=== PATIENT | male | born 1950 | race Caucasian/White ===

== ENCOUNTER 2018-06-26 02:26 | Inpatient (IN) ==
--- NOTE | 2018-06-26 02:36 | Emergency Department Note ---
Back Pain HPI - General Chief Complaint: Back Pain/Injury Stated Complaint: back pain Time Seen by Provider: 06/26/18 02:33 Source: patient Limitations: no limitations - History of Present Illness HPI Narrative: he has a history of chronic lumbosacral disc disease, was seen today and had a CT showed broadband disc disease at L2-L3 mild broadband disc protrusion at L3- L4 fusion at L4-L5. He was given a pain injection Dilaudid and Zofran and then he did follow-up with Dr. Cartagena was arranged for him to have a epidural steroid injection tomorrow in the radiology department. He is to return again for pain relief.He is currently on Flexeril Neurontin and [place] tens and mor phine 15 MG. They have previously discussed with Dr. Cartagena a referral to the pain clinic - Related Data Home Medications Medication Instructions Recorded Confirmed Aspirin [Anna Chewable Aspirin] 162 mg PO DAILY 08/03/15 03/21/17 Cyclobenzaprine [Flexeril] 10 mg PO HSP PRN 08/03/15 03/21/17 Gabapentin [Neurontin] 300 mg PO TID 08/03/15 03/21/17 HYDROcodone/APAP 10/325MG [[place] 1 tab PO Q4H PRN 08/03/15 03/21/17 10/325Mg] Lovastatin 40 mg PO HS 08/03/15 03/21/17 Metoprolol Tartrate 12.5 mg PO BID 08/03/15 03/21/17 amLODIPine [Norvasc] 10 mg PO DAILY 08/03/15 03/21/17 Allergies Allergy/AdvReac Type Severity Reaction Status Date / Time No Known Drug Allergies Allergy Verified 03/21/17 10:54 Review of Systems All systems ED: reviewed and negative except as stated. Musculoskeletal: Reports: back pain. Denies: joint swelling, joint pain, muscle cramps Past Medical History - Past Medical History PMF Narrative: All Active Problems (Last Reviewed 03/21/17 @ 13:19 by Everardo Campbell PA-C) Coronary artery disease (Acute) Abscess (Acute) Lumbosacral disc disease (Acute) Laceration of right hand (Acute) Medical history: Reports: other (mitral valve diseasemitral regurgitation, pain, headache, hypertension, hypercholesterolemia) - Social History smoking status: Former smoker Alcohol use: Reports: Rarely Drug use: Reports: none Physical Exam Limitations: no limitations General appearance: alert Head: atraumatic Eye: Present: normal appearance, PERRL ENT: normal exam, normal oropharynx, mucous membranes moist Neck: Present: normal inspection, full ROM. Absent: trachea midline Chest: Present: normal inspection, symmetric chest wall rise. Absent: tenderness Respiratory: Present: normal lung sounds bilaterally. Absent: respiratory distress, rales/crackles, wheezes Course Vital Signs Temperature 98.2 F 06/26/18 02:27 Respiratory Rate 18 06/26/18 02:27 Blood Pressure 131/79 06/26/18 02:27 Pulse Oximetry (%) 94 06/26/18 02:27 Temperature 98.2 F 06/26/18 02:27 Pulse Rate 79 06/26/18 08:53 Respiratory Rate 18 06/26/18 02:27 Blood Pressure 127/80 06/26/18 08:01 Pulse Oximetry (%) 96 06/26/18 08:53 Back Pain/Injury - MDM Narrative Medical decision making narrative: Patient is scheduled for dural steroid injection tomorrow is given IV Dilaudid and Zofran. patient complaining of severe pain . was given 1 mg of dilaudid and still complaining of a 10/10 pain. A second injection Dilaudid given 1 mg patient was noted to start the satting was put on O2 and observed. Complaining of severe pain and That some of the pain is starting to wrap around to his front. Ultrasound showed no evidence of aneurysm or gallbladder involvement. chest xray performed as his sats would drop to 89% at times. UA and chest x-ray also performed. The urine chest x-ray are normal BBC is 13,000 Dr. Patel has been contacted and is attempted to try to work him in earlier for the intrathecal injection patient transferred to the care of Dr. Jack at [address] Patel will get back to us of when he can do the intrathecal injections - Lab Data Result diagrams: 06/26/18 08:25 Lab Results 06/26/18 06/26/18 Range/Units 08:24 08:25 WBC 13.0 H (4.5-11.0) K/mcL RBC 4.17 L (4.50-5.90) M/mcL Hgb 12.9 L (13.5-16.5) g/dL Hct 38.6 L (41.0-55.0) % POC Hct 39.0 L (41.0-55.0) % MCV 92.5 (80.0-100.0) fL MCH 30.9 (26.0-34.0) pg MCHC 33.5 (31.0-36.0) g/dL RDW 12.9 (11.5-14.5) % Plt Count 242 (140-440) K/mcL MPV 7.2 L (7.4-10.4) fL Gran % 82.1 H (38.0-78.0) % Lymph % (Auto) 6.9 L (15.5-49.0) % Mckenzie % (Auto) 10.9 (1.0-12.0) % Eos % (Auto) 0.1 (0.0-7.0) % Baso % (Auto) 0 (0.0-2.0) % Gran # 10.7 H (1.8-8.0) K/mcL Lymph # (Auto) 0.9 L (1.5-4.8) K/mcL Mckenzie # (Auto) 1.4 H (0.1-0.9) K/mcL Eos # (Auto) 0 (0.0-0.7) K/mcL Baso # (Auto) 0 (0.0-0.3) K/mcL POC Sodium 134 (133-145) mmol/L POC Potassium 4.6 (3.3-5.1) mmol/L POC Chloride 99 (96-108) mmol/L POC Total CO2 24 (22-30) mmol/L POC BUN 18 (8-23) mg/dl POC Creatinine 0.8 (0.7-1.2) mg/dl POC Glucose 150 H (70-105) mg/dL POC WB Ioniz Calcium 1.16 (1.16-1.32) mmol/L Disposition Pt seen by EXPORT SALES MANAGER/PA only: No Clinical Impression: Lumbosacral disc disease Disposition: Home, Self-Care Condition: Fair Instructions: Lumbar Radiculopathy (ED), Chronic Back Pain (ED) Additional Instructions: Keep appointment for epidural steroid injection tomorrow 10 with pain meds of morphine and hydrocodone tens Referrals: Alber Cartagena MD [Primary Care Provider] - Time of Disposition: 09:04
[2018-06-26] MEDS ORDERED: ONDANSETRON 4 MG/2 ML VIAL IV ONE (02:37)
[2018-06-26] MEDS: HYDROmorphone 2 MG/ML VIAL IV PRN ×4 (02:46→18:15)
[2018-06-26] MEDS ORDERED: CYCLOBENZAPRINE 10 MG TABLET PO ONE (06:36)
[2018-06-26] MEDS ORDERED: KETOROLAC 30 MG/ML VIAL IV ONE (08:15)
[2018-06-26] MEDS ORDERED: KETOROLAC 15 MG/ML VIAL IV ONE (08:18)
--- NOTE | 2018-06-26 08:46 | XRay Report ---
CLINICAL INFORMATION: Hypoxia COMPARISON: 08/03/2015 FINDINGS: Heart is upper limits normal in size. Mediastinum and pulmonary vessels are normal. Lungs are clear. No effusions. IMPRESSION: Negative Interpreted and Authenticated by: Damion Patel 06/26/18
--- NOTE | 2018-06-26 08:54 | Ultrasound Report ---
CLINICAL INFORMATION: ruq pain COMPARISON: None. FINDINGS: Liver is diffusely hyperechoic and mildly enlarged with vertical measured 19 cm. The gallbladder and bile ducts are normal CD6 millimeters. Pancreas not visualized. No free fluid IMPRESSION: Moderate hepatomegaly with elevated echotexture compatible with fatty change or other diffuse hepatocellular process Interpreted and Authenticated by: Damion Patel 06/26/18
[2018-06-26 08:58] LABS: Basophils # (Auto) 0 K/mcL (0.0-0.3); Basophils % (Auto) 0 % (0.0-2.0); Eosinophils # (Auto) 0 K/mcL (0.0-0.7); Eosinophils % (Auto) 0.1 % (0.0-7.0); Granulocytes % (Auto) 82.1 % (38.0-78.0); Lymphocytes # (Auto) 0.9 K/mcL (1.5-4.8); Lymphocytes % (Auto) 6.9 % (15.5-49.0); Mean Cell Volume 92.5 fL (80.0-100.0); Mean Corpuscular HGB Conc 33.5 g/dL (31.0-36.0); Monocytes # (Auto) 1.4 K/mcL (0.1-0.9); Monocytes % (Auto) 10.9 % (1.0-12.0); Platelet Count 242 K/mcL (140-440); RBC 4.17 M/mcL (4.50-5.90); Red Cell Distribution Width 12.9 % (11.5-14.5)
[2018-06-26] MEDS ORDERED: MIDAZOLAM 2 MG/2 ML VIAL IV SCH (10:30)
[2018-06-26] MEDS ORDERED: BUPIVACAINE PF 0.25% 10 ML VIAL IJ SCH (10:30)
[2018-06-26] MEDS ORDERED: TRIAMCINOLONE ACETONIDE 10 MG/ML INTRAARTIC SCH (10:30)
[2018-06-26] MEDS ORDERED: fentaNYL 100 MCG/2 ML VIAL IV SCH (10:30)
[2018-06-26] MEDS ORDERED: IOHEXOL 180 10 ML VIAL IJ SCH (10:30)
[2018-06-26] MEDS ORDERED: fentaNYL 100 MCG/2 ML VIAL IV ONE (11:00)
[2018-06-26] MEDS: MIDAZOLAM 2 MG/2 ML VIAL ONE ×2 (11:25→11:40)
--- NOTE | 2018-06-26 12:13 | Emergency Department Note ---
Back Pain HPI - General Chief Complaint: Back Pain/Injury Stated Complaint: back pain Time Seen by Provider: 06/26/18 02:33 Source: patient Mode of arrival: ambulatory Limitations: no limitations - History of Present Illness HPI Narrative: Patient was checked out to me by Dr. Fleming at shift change. I reviewed his note as well as imaging studies and lab Patient notes severe lumbar back pain unmitigated by current narcotics muscle relaxer neuropathic pain medicine. No recent trauma. Patient slowly got worse over the last week or so for unclear factors. He denies bowel or bladder issues. Does note radiculopathy bilaterally down to mid thigh. He is able to walk but this is severely limited by pain Further history obtained from his and son, they state that he is never had pain like this before. They noted his pain the last couple days has been so severe that he cannot even walk - Related Data Home Medications Medication Instructions Recorded Confirmed Cyclobenzaprine [Flexeril] 10 mg PO HSP PRN 08/03/15 06/26/18 HYDROcodone/APAP 10/325MG [[place] 1 tab PO Q3H PRN 08/03/15 06/26/18 10/325Mg] Atorvastatin [Lipitor] 20 mg PO DAILY 06/26/18 06/26/18 DULoxetine HCL [Cymbalta] 30 mg PO DAILY 06/26/18 06/26/18 DULoxetine HCL [Cymbalta] 60 mg PO DAILY 06/26/18 06/26/18 Gabapentin 600 mg PO BID 06/26/18 06/26/18 Lisinopril [Zestril] 5 mg PO DAILY 06/26/18 06/26/18 Metoprolol Tartrate [Lopressor] 25 mg PO BID 06/26/18 06/26/18 morphine SULFATE [Morphine Sulfate 15 mg PO Q8-12HP PRN 06/26/18 06/26/18 ER] Allergies Allergy/AdvReac Type Severity Reaction Status Date / Time No Known Drug Allergies Allergy Verified 03/21/17 10:54 Review of Systems Musculoskeletal: Reports: back pain. Denies: joint swelling, joint pain, muscle cramps Past Medical History - Past Medical History Medical history: Reports: other (mitral valve diseasemitral regurgitation, pain, headache, hypertension, hypercholesterolemia) - Social History smoking status: Former smoker Alcohol use: Reports: Rarely Drug use: Reports: none Physical Exam I reexamined the patient and note that the tenderness is worst at the the L3-L5 area bilaterally. No SI joint tenderness is noted. No paraspinal or flank tenderness is noted. Straight leg raise is negative-that is he does not have radiculopathy below the knee even with flexion of his hip and extension of his lower legs. Amando test is negative and his pelvis does seem stable to me I did try hip maneuvers and these did exacerbate tenderness but the pain was nonspecific and that it just exacerbated his back pain. There is no hip pain. The patient remains diaphoretic and tachycardic despite multiple treatments Limitations: no limitations General appearance: alert Course Vital Signs Temperature 98.2 F 06/26/18 02:27 Respiratory Rate 18 06/26/18 02:27 Blood Pressure 131/79 06/26/18 02:27 Pulse Oximetry (%) 94 06/26/18 02:27 Temperature 98.2 F 06/26/18 02:27 Pulse Rate 95 H 06/26/18 16:46 Respiratory Rate 14 06/26/18 12:06 Blood Pressure 140/78 06/26/18 16:46 Pulse Oximetry (%) 97 06/26/18 16:46 Back Pain/Injury - Lab Data Lab results reviewed: Yes I reviewed the patient's lab results. Result diagrams: 06/26/18 08:25 Lab Results 06/26/18 06/26/18 06/26/18 Range/Units 08:24 08:25 08:25 WBC 13.0 H (4.5-11.0) K/mcL RBC 4.17 L (4.50-5.90) M/mcL Hgb 12.9 L (13.5-16.5) g/dL Hct 38.6 L (41.0-55.0) % POC Hct 39.0 L (41.0-55.0) % MCV 92.5 (80.0-100.0) fL MCH 30.9 (26.0-34.0) pg MCHC 33.5 (31.0-36.0) g/dL RDW 12.9 (11.5-14.5) % Plt Count 242 (140-440) K/mcL MPV 7.2 L (7.4-10.4) fL Gran % 82.1 H (38.0-78.0) % Lymph % (Auto) 6.9 L (15.5-49.0) % Benson % (Auto) 10.9 (1.0-12.0) % Eos % (Auto) 0.1 (0.0-7.0) % Baso % (Auto) 0 (0.0-2.0) % Gran # 10.7 H (1.8-8.0) K/mcL Lymph # (Auto) 0.9 L (1.5-4.8) K/mcL Benson # (Auto) 1.4 H (0.1-0.9) K/mcL Eos # (Auto) 0 (0.0-0.7) K/mcL Baso # (Auto) 0 (0.0-0.3) K/mcL Band Neutrophils % POC Sodium 134 (133-145) mmol/L POC Potassium 4.6 (3.3-5.1) mmol/L POC Chloride 99 (96-108) mmol/L POC Total CO2 24 (22-30) mmol/L POC BUN 18 (8-23) mg/dl POC Creatinine 0.8 (0.7-1.2) mg/dl POC Glucose 150 H (70-105) mg/dL POC WB Ioniz Calcium 1.16 (1.16-1.32) mmol/L C-Reactive Protein 25.9 H (0.0-0.8) mg/dl 06/26/18 Range/Units 08:25 WBC (4.5-11.0) K/mcL RBC (4.50-5.90) M/mcL Hgb (13.5-16.5) g/dL Hct (41.0-55.0) % POC Hct (41.0-55.0) % MCV (80.0-100.0) fL MCH (26.0-34.0) pg MCHC (31.0-36.0) g/dL RDW (11.5-14.5) % Plt Count (140-440) K/mcL MPV (7.4-10.4) fL Gran % (38.0-78.0) % Lymph % (Auto) (15.5-49.0) % Benson % (Auto) (1.0-12.0) % Eos % (Auto) (0.0-7.0) % Baso % (Auto) (0.0-2.0) % Gran # (1.8-8.0) K/mcL Lymph # (Auto) (1.5-4.8) K/mcL Benson # (Auto) (0.1-0.9) K/mcL Eos # (Auto) (0.0-0.7) K/mcL Baso # (Auto) (0.0-0.3) K/mcL Band Neutrophils % Not Reportable POC Sodium (133-145) mmol/L POC Potassium (3.3-5.1) mmol/L POC Chloride (96-108) mmol/L POC Total CO2 (22-30) mmol/L POC BUN (8-23) mg/dl POC Creatinine (0.7-1.2) mg/dl POC Glucose (70-105) mg/dL POC WB Ioniz Calcium (1.16-1.32) mmol/L C-Reactive Protein (0.0-0.8) mg/dl - Radiology Data Radiology results reviewed: Yes I reviewed the patient's radiology results. Reviewed CT scan of the spine report. This was expanded to include the belly and pelvis and we do not see any kidney stones in the belly either. I reviewed the findings with both Dr. Patel, the radiologist and Dr. Calixto, the neurosurgeon MRI of the lower back does not show any new findings. X-ray of the lumbar spine flexion-extension shows stable hardware and fusion of the lumbar spine Abdominal ultrasound shows no acute findings Chest x-ray was read as normal Disposition Pt seen by TUBE BENDER/PA only: No Clinical Impression: Lumbosacral disc disease, Lumbar radiculopathy Summary: I initially discussed case with Dr. Garcia, of the interventional pain consultants. He agreed to consult on the patient if he was admitted but otherwise would follow the patient as an outpatient. However, Dr. Patel agreed to do lumbar thecal injection as an outpatient. This was accomplished under fluoroscopic with fentanyl and Ativan for sedation. He is requiring 1.5 L oxygen nasal cannula He does not believe the injection helped so we are ordering MRI to further sort out what is going on with him. Pain is still relatively uncontrolled despite above-noted sedation and narcotics. He is requiring nasal cannula oxygen due to the narcotics/sedatives He continued to require pain medicine and sedatives but we were able to get an MRI on the second attempt of his lower back which did not show any new findings. All imaging so far was negative but I did discuss the case with Dr. Calixto, the neurosurgeon at [facility], who reviewed the case with me as well as the films including the CT scan but not the MRI as it was not available to him yet. He did not see anything surgical to be done emergently at this time-the patient does not have any bowel or bladder symptoms, paresthesias or paralysis-just severe out of proportion pain at this point. He recommended we get an x-ray with flexion-extension to make sure that the hardware that his fusion point was intact. Indeed this was so I then discussed the case with Dr. Teixeira, our hospitalist, who agreed to admit the patient if Dr. Garcia would consult. So I called Dr. Garcia back and he agreed to come in and see the patient as a credit consultant. He also recommended running the case by Dr. Ayala, infectious disease, to see what he thought about the possibility of discitis. Both Dr. Ayala and Dr. Garcia felt that we should order CRP ESR and procalcitonin to evaluate for possible discitis. Disposition: Xfer As Inpt ([facility]) Condition: Fair Instructions: Lumbar Radiculopathy (ED), Chronic Back Pain (ED) Referrals: Alber Cartagena MD [Primary Care Provider] - Juan Francisco Teixeira DO [Physician] - Jose Ayala MD [Physician] - Rubin Calixto [Physician] - Zion Garcia DO [Physician] -
--- NOTE | 2018-06-26 12:52 | XRay Report ---
CLINICAL INFORMATION: Low back pain and right L2-3 radiculopathy. History of L4-5 anterior/posterior fusion Y laminectomy COMPARISON: None. TECHNIQUE: The procedure and risks including possibility of bleeding, infection, paralysis, ineffective procedure which does not alleviate pain and dural puncture resulting in a CSF leak and ultimately spinal headache possibly requiring blood patch were explained to the patient. He understood and wished to proceed. He was medicated, prior to, and during the procedure with a total of 2 mg versed and 100 mcg fentanyl given intravenously well blood pressure and pulse oximetry were monitored. He maintained continence during the procedure. Total sedation time 30 minutes. With the patient in prone position, the skin overlying the right L2-3 interlaminar space was fluoroscopically marked, prepped and locally anesthetized with 1% lidocaine using a 25-gauge spinal needle to the level of the superior right L3 lamina. A 20-gauge Touhy needle was then advanced under fluoroscopic guidance to the superior right L3 lamina and through the right ligamentum flavum into the epidural space using forward saline flush technique. Upon entering the epidural space, there was no blood return or paresthesia. Approximate 3 cc of Optiray 180 was injected confirming needle tip positioned in the epidural space the contrast permeating the right central canal and the L2-3 right lateral recess and IV foramen. 40 mg of Kenalog admixed with 3 cc of 0.25% Marcaine diluted one to one with normal sterile saline were then injected. The needle was then cleared with normal sterile saline and removed. Patient was obtunded following procedure and adequate history of regarding pain relief could not be obtained. IMPRESSION: Successful right L2-3 interlaminar epidural steroid/bupivacaine injection. No apparent complication. Patent tolerated the well. Suggest: Elective follow-up at interventional pain clinic Interpreted and Authenticated by: Damion Patel 06/26/18
[2018-06-26] MEDS ORDERED: LORazepam 2 MG/ML VIAL IV ONE ×2 (14:35→14:47)
--- NOTE | 2018-06-26 16:29 | XRay Report ---
CLINICAL INFORMATION: severe lumbar pain, evaluate hardware COMPARISON: Lumbar MRI 06/26/[address] 06/25/2018 FINDINGS: L4-5 anterior/posterior fusion changes provided by interbody graft, pedicle screws and short interbody strut. Alignment is anatomic at the fused level without motion between flexion and extension. There is only normal physiologic motion with flexion and extension at the remaining lumbar spine. Severe L2-3 degenerative disc disease noted. No osseous abnormality. Soft tissues are normal IMPRESSION: Solid L4-5 anterior/posterior fusion changes which are anatomically aligned and stable during flexion-extension Severe L2-3 degenerative disc disease Interpreted and Authenticated by: Damion Patel 06/26/18
--- NOTE | 2018-06-26 17:15 | Magnetic Resonance Report ---
CLINICAL INFORMATION: Low back pain and right radiculopathy. COMPARISON: Preoperative lumbar MRI 04/30/2015 TECHNIQUE: Sagittal T1 FLAIR, STIR, fast spin echo T2, axial T2 weighted images were acquired. FINDINGS: Anterior/posterior L4-5 fusion provided by interbody graft, pedicle screws and short interbody struts. Wide laminectomy changes at this level. Alignment of the lumbar spine is anatomic. There are no marrow signal abnormalities. Conus medullaris ends at T12 homogeneous signal. Cauda equina roots are normal. No soft tissue abnormalities. The T11-T12 and T12-L1 disc levels are normal. At L1-2, a broad right-sided disc protrusion results in mild right IV foraminal narrowing. This has increased. At L2-3, mild broad disc protrusion with right-sided asymmetry results in moderate right IV foraminal narrowing impinging exiting right L2 nerve root. At L3-4, mild broad disc protrusion with right-sided asymmetry results in moderate right IV foraminal narrowing slightly the exiting right L3 nerve root. At the L4-5 surgerized level, the central canal lateral recess and IV foraminal are widely patent. There is insignificant postsurgical granulation tissue in the epidural space. At L5-S1, minimal broad disc protrusion slightly impinges the thecal sac. Moderate facet arthropathy noted IMPRESSION: 1. L2-3: Moderate broad protrusion right-sided asymmetry and facet arthropathy resulting in moderate right IV foraminal narrowing impinging the exiting right L2 nerve root. 2. L3-4: mild broad disc protrusion and facet arthropathy resulting in moderate right and mild left IV foraminal narrowing impinging the exiting L3 nerve roots. 3. L4-5: anterior/posterior fusion and wide laminectomy appear solid. There is no significant granulation tissue in the epidural space. This was overestimated on the basis of recent CT. 4. L1-2: Small right-sided disc protrusion resulting in moderate right IV foraminal narrowing impinging exiting right L1 nerve root. Interpreted and Authenticated by: Damion aPtel 06/26/18
[2018-06-26 17:35] LABS: C-Reactive Protein 25.9 mg/dl (0.0-0.8)
[2018-06-26] MEDS ORDERED: VANCOMYCIN 1,000 MG in 0.9 % SODIUM CHLORIDE 250 ML IV ONE ×2 (17:56→19:14)
[2018-06-26] MEDS ORDERED: PIPERACILLIN SODIUM/TAZOBACTAM 3.375 GM in DEXTROSE 5% IN WATER 50 ML IV ONE ×2 (17:56→20:00)
--- NOTE | 2018-06-26 18:08 | Internal Med History&Physical ---
Medical - H&P: HPI Patient information: Note initiated : 06/26/18 at 6:02 pm Service Date, if different from initiated Date: [] Patient: Oliver Bettencourt a 67 y/o M admitted on for Back Pain . Chief Complaint: [] History of present illness: Mr. Bettencourt is a 67 year old M With chronic low back pain with radiculopathy who presents with acute on chronic pain. History is obtained from as patient is currently sedated from her seizures and sedating medications. Per his he woke up fine Friday however Friday night he started having discomfort when he was home with his son started worsening of pain very marychuy tated she said he was writhing in pain. He had an appointment to see Dr. Cartagena 4:00 on but could not wait and went into the ED. He was given a prescription for morphine. However pain was still uncontrolled on that. And then came back in early this morning. Pain is been so severe that he has had extremely difficult time and walking. could not recall any aggravating factors such as trauma or sudden twisting. He has been on [place]'s 10/325 8 times a day for years, plus Flexeril and gabapentin. There is no bowel or bladder incontinence. He has peripheral neuropathy with decreased sensations in his legs. He has radiculopathy to the bilateral legs/thigh. His reports no recent illnesses no fevers or chills. He had extensive work-up in the ED including lumbar x-rays chest x-ray lumbar MRI. The results were reviewed with Dr. Gilliland neurosurgeon who felt there is no acute pathology that required any potential surgical intervention. Case was discussed with Dr. Garcia who will manage the pain while inpatient. Case was also discussed with Dr. Ayala given the mildly elevated white blood cell count. CRP is elevated. Other than that and white blood cell count [id number] chemistries unremarkable. He is afebrile. He is also received in an epidural steroid injection by radiology without success. He has been sedated to the point where he required oxygenation. Because of intractable pain patient will be admitted for pain control with Dr. Feng following and Dr. Arredondo was consulted. Antibiotics have been started and blood cultures been started as well. ESR and procalcitonin are pending. MRI did not mention any discitis, however still on the differential. Unable to obtain review of systems given patient's altered state at this time Medical - H&P: PMH Medical history: Medical History (Last Reviewed 03/21/17 @ 13:19 by Everardo Campbell PA-C) Chronic low back pain with radiculopathy and peripheral neuropathy Hypertension Hyperlipidemia Surgical history: Lumbar surgery in 2006 and roughly 2015 Cervical spine surgery Mitral valve repair Family history: Mother's history unknown Father had cancer Social history: Patient has about 1 beer a night per Does not use a cane or walker to ambulate Lives at home with Medical - H&P: Meds Home Medications Medication Instructions Recorded Confirmed Type Cyclobenzaprine [Flexeril] 10 mg PO HSP PRN 08/03/15 06/26/18 History HYDROcodone/APAP 10/325MG [[place] 1 tab PO Q3H PRN 08/03/15 06/26/18 History 10/325Mg] Atorvastatin [Lipitor] 20 mg PO DAILY 06/26/18 06/26/18 History DULoxetine HCL [Cymbalta] 30 mg PO DAILY 06/26/18 06/26/18 History DULoxetine HCL [Cymbalta] 60 mg PO DAILY 06/26/18 06/26/18 History Gabapentin 600 mg PO BID 06/26/18 06/26/18 History Lisinopril [Zestril] 5 mg PO DAILY 06/26/18 06/26/18 History Metoprolol Tartrate [Lopressor] 25 mg PO BID 06/26/18 06/26/18 History morphine SULFATE [Morphine Sulfate 15 mg PO Q8-12HP PRN 06/26/18 06/26/18 History ER] Allergies Allergy/AdvReac Type Severity Reaction Status Date / Time No Known Drug Allergies Allergy Verified 03/21/17 10:54 Medical - H&P: Exam - Constitutional Vitals: Temp Pulse Resp BP Pulse Ox 98.2 F 95 H 14 140/78 97 06/26/18 02:27 06/26/18 16:46 06/26/18 12:06 06/26/18 16:46 06/26/18 16:46 Exam: General: Patient sedated and nonverbal from sedation medication for procedures and imaging, but partially arousable Eyes/N/T: EOMI, PEERL, MMM Head/Neck: neck supple, normocephalic atraumatic CV: RRR, No murmurs, normal s1/s2 Pulm: Clear b/l, no wheezing/rhonchi/rales Abd: soft, nontender, +BS x4 Ext: no clubbing/cyanosis/edema Neuro: Sedated from medications but partially arousable and follows all commands and verbalizes when I ask a question but is incomprehensible, 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 Skin: warm/dry Medical - H&P: Reslt - Labs CBC & Chem 7: 06/26/18 08:25 06/26/18 17:33 Labs: Short CBC 06/26/18 Range/Units 08:25 WBC 13.0 H (4.5-11.0) K/mcL Hgb 12.9 L (13.5-16.5) g/dL Hct 38.6 L (41.0-55.0) % Plt Count 242 (140-440) K/mcL - Impressions MRI with DJD and disc protrusions L1-L4. No mention of discitis. Medical - H&P: A/P - Narrative A/P Narrative: A: *Intractable low back pain with b/l radiculopathy, acute on chronic: -Imaging reviewed with Dr. Marily wong felt there is no concerns for a potential need for surgery *Hypoxia: from sedating meds for pain control and procedures *Peripheral neuropathy: *HTN/HLD: *Fatty Liver: * P: -pain mgmnt per Dr. Garcia -started muscle relaxers/toradol/PRN Dilaudid for now -pending ESR/PCT/Manual diff -case discussed with Dr. Ayala -jen/mariajose pending BC and lab markers -pt/ot -ppx: heparin
[2018-06-26 18:24] LABS: Band Neutrophils % 20 % (0-10); Eosinophils % (Manual) 1 % (0-7); Lymphocytes % 3 % (15-49); Monocytes % (Manual) 10 % (1-12); Platelet Estimate NORMAL (NORMAL); RBC Morphology NORMAL (NORMAL); Segmented Neutrophils % 63 % (38-78)
[2018-06-26 18:48] LABS: ALT/SGPT 34 U/l (0-40); Albumin 3.9 gm/dL (3.2-5.2); Alkaline Phosphatase 116 U/L (39-117); Bilirubin,Direct < 0.2 mg/dL (0.0-0.3); Blood Urea Nitrogen 20 mg/dl (8-23); Gamma Glutamyl Transpeptidase 59 U/L (8-61); Uric Acid 6.9 mg/dL (2.5-8.0)
[2018-06-26] MEDS ORDERED: VANCOMYCIN PER PHARMACY IV ONE (19:14)
[2018-06-26] MEDS ORDERED: IPRATROPIUM/ALBUTEROL 3 ML AMPUL.NEB NEB PRN (19:14)
[2018-06-26] MEDS ORDERED: METOCLOPRAMIDE 10 MG/2 ML VIAL IV PRN (19:14)
[2018-06-26] MEDS ORDERED: NALOXONE HCL 0.4 MG/ML VIAL IV PRN (19:14)
[2018-06-26] MEDS ORDERED: POTASSIUM CHLORIDE 40 MEQ in DEXTROSE 5% IN WATER 500 ML IV PRN (19:14)
[2018-06-26] MEDS ORDERED: LACTULOSE 20 GM/30 ML ORAL.SOL PO PRN (19:14)
[2018-06-26] MEDS ORDERED: POTASSIUM CHLORIDE 20 MEQ TABLET PO PRN ×2 (19:14)
[2018-06-26] MEDS ORDERED: ACETAMINOPHEN 325 MG TABLET PO PRN (19:14)
[2018-06-26] MEDS ORDERED: MAGNESIUM SULFATE 2 GM/50 ML BAG IV PRN (19:14)
[2018-06-26] MEDS ORDERED: SENNOSIDES 1 TABLET PO PRN (19:14)
[2018-06-26] MEDS ORDERED: ONDANSETRON 4 MG/2 ML VIAL IV PRN (19:14)
[2018-06-26] MEDS ORDERED: HYDROmorphone 2 MG/ML VIAL ONE (19:27)
[2018-06-26] MEDS ORDERED: KETOROLAC 30 MG/ML VIAL ONE (19:54)
[2018-06-26] MEDS ORDERED: METHOCARBAMOL 1,000 MG/10 ML VIAL ONE (19:54)
[2018-06-26] MEDS: 0.9 % SODIUM CHLORIDE 1,000 ML IV SCH (20:02)
[2018-06-26] MEDS ORDERED: VANCOMYCIN 1,500 MG in 0.9 % SODIUM CHLORIDE 500 ML IV ONE (21:00)
[2018-06-26] MEDS: GABAPENTIN 300 MG CAPSULE PO SCH (21:10)
[2018-06-26] MEDS: METOPROLOL TARTRATE 25 MG TABLET PO SCH (21:10)
[2018-06-26] MEDS: DOCUSATE SODIUM 100 MG CAPSULE PO SCH (21:10)
--- NOTE | 2018-06-26 22:40 | Consultation ---
DATE OF CONSULTATION: 06/26/2018 HISTORY OF PRESENT ILLNESS: I had the opportunity to come to the emergency room to evaluate Oliver Bettencourt based upon the ER physician's request. I have been called earlier in the day in regards to this patient who apparently had been in the ER since yesterday or at least all evening long and had continued to be given opioids with very minimal benefit for unrelenting what was described as low back pain. I had suggested that certainly if the patient was continuing to have severe pain that he would need to be admitted by the hospitalist and certainly I could be consulted for further evaluation. I found out later that day that Dr. Patel had also been called, and he apparently did an epidural steroid injection on the patient in the operative room and really provided no benefit. Patient apparently had an MRI done of his back as well as CT scan as well as ultrasound of his abdomen, all of which were unremarkable other than noting fusion in the lumbar spine. Patient because he was not getting better was consulted for pain management as they were going to go ahead and admit this patient. As I was talking to the emergency room, it was my suggestion that they pursue getting a sed rate, CRP as based upon all of the other possible causes of this significant back pain being unremarkable. The only thing that potentially made sense to me was possibly some type of infection and therefore I suggested that they at least go ahead and order that. I also later suggested that they get a UA to also determine if that could be a source of any type of infection. When I came to the ER, the patient was writhing in pain. His saturation was anywhere from 90 to 94 and was receiving O2 via mask. He would come in and out of consciousness and when I would talk to him, it was difficult to get history from him. From what I understand in talking to his , she stated that he started having pain while he was watching TV on Friday night and then just gradually became worse. Apparently, he sought help in the emergency room at [facility] and again was in [place] most of the evening without any real remarkable findings as previously stated. The patient's denied that there was any remarkable history that potentially could have injured his back or been traumatic to his back and really based upon the onset, it gradually came on Friday night, but became worse and significant and severe fairly rapidly. The patient's history is that of multiple back surgeries, initially herniated disk in 2006 with likely a decompressive laminectomy uncertain of what level, also fusion was then provided in 2016. The patient apparently fell off a roof in 2009, but did not require any type of surgical intervention. Those are the things that were remarkable in regards to his back. Apparently, he had a cervical procedure as well. All of this can go under surgical history also. Mitral valve prolapse repair in 2014 and apparently had right ankle surgery when he was quite young. PAST MEDICAL HISTORY: Other than the hypertension and the mitral valve prolapse, unremarkable. SOCIAL HISTORY: The patient denies any history of illicit drug use, tobacco or alcohol use. HOME MEDICATIONS: Lipitor 20 mg p.o. daily; cyclobenzaprine 10 mg p.o. at bedtime p.r.n.; duloxetine; Cymbalta 30 mg p.o. daily plus 60 mg p.o. daily, so a total of 90; gabapentin 600 mg p.o. b.i.d.; hydromorphone 10/325 and he would take 8 of these a day; lisinopril 5 mg p.o. daily; metoprolol 25 mg p.o. b.i.d.; morphine sulfate 15 mg p.o. q.8-12 hours p.r.n. and his did not recall that he was utilizing this, but this was in his record. It should be noted that the ER physician stated that the patient had received 200 mcg of fentanyl IV had also been given 4 mg of Dilaudid and sounds as if this was over likely a 4 to 6 hour period and still pain was unrelenting. He had also been given, I believe, 45 mg of Toradol total, I believe, 15 and 30 on separate occasions. PHYSICAL EXAMINATION: GENERAL: The patient was awake, was somewhat writhing in and out of consciousness, was sweating, was receiving O2 via face mask that he would oftentimes lift up off of his face and then push back down. Again, very hard to get a good history from him. NECK: Supple. No anterior or posterior lymphadenopathy. HEART: Regular rate and no ectopy. LUNGS: Clear to auscultation. No rales, rhonchi, or wheezing. ABDOMEN: Soft, some tenderness in his abdomen, but really nothing of significance. There was no guarding and no rigidity. BACK: Very difficult to pursue as it was hard to move him around, was able to reach around and press centrally and felt as if he had midline pain likely around the L3-L4 to L4-L5 level, but again difficult to know level, but certainly in the lumbar spine midline tenderness was noted. EXTREMITIES: Straight leg raise, possibly slightly positive on the right, but difficult to assess as any movement was painful. Left was unremarkable. Kranthi's test was unremarkable for SI joint pain bilaterally. There was no clonus noted bilaterally. No significant pain upon extremes of internal and external rotation or flexion of the hips bilaterally. NEUROLOGIC: Patellar deep tendon reflexes appear equal bilaterally. Unable to elicit Achilles bilaterally. Unable to test his motor strength as I could not get him to lift his legs and just having a difficult time having him understand me. Certainly, there did not appear to be any atrophy in his lower extremities, but again unable to assess strength of the motor secondary to his inability to respond to request. INTEGUMENT: Of note, the patient has a small little lesion underneath, believe it was his left knee. His right long finger had a healing gash in it and his in fact stated that he numerous times would have gases on his hands or other places on his body that he would just put a Band-Aid on and ignore it. ASSESSMENT: 1. Severe intractable low back pain, etiology uncertain, but question if it is possibly a diskitis, osteomyelitis, or even potentially early abscess that has not shown up on MRI. 2. History of failed back syndrome and was being treated with gabapentin, muscle relaxers, chronic opioid therapy for nonmalignant pain, but this pain certainly was far significantly increased compared to normal. 3. History of mitral valve prolapse repair. PLAN: When I went to the ICU to see the patient, the hospitalist had already written orders for pain control which was 0.5 to 2 mg of Dilaudid every 2 to 3 hours p.r.n. pain. When I had figured out what the patient had gotten in regards to the fentanyl and then the Dilaudid based upon my calculations, it appeared as if his overall opioid need was approximately 72 mg of Dilaudid per day, which would have been 720 mg of IV morphine per day, so extremely high, divided that by 2 which brought it to 36 mg of IV Dilaudid which would have been half of likely what he had consumed over the last 8 hours, and I was going to suggest that they put the patient on a REPAIRER PUMP. However, the hospital did not have any frankfurter inspector available secondary to the syringe is being backordered. Therefore, I was going to put him on a Dilaudid drip baseline with intermittent nurse administered injections of Dilaudid IV; however, when attempting to do this, the pharmacist was not familiar with being able to mix the Dilaudid as I had asked which was essentially the same milligram strength I would use in a REPAIRER PUMP and therefore I just stated for them to utilize the orders that were given by the hospitalist, and we would adjust from there. I do agree for him to continue on the 600 mg of gabapentin twice daily. At some point, we may consider going up with this, but likely patient's pain is more nociceptive than neuropathic. I do also think that having him on muscle relaxant is reasonable as well. He was placed on methocarbamol, I believe, 1000 mg IV. I believe it was q. 6-8 hours. Might consider switching him back to cyclobenzaprine 10 mg 3 times daily. If the methocarbamol is not working, the cyclobenzaprine has a tricyclic antidepressant effect as well and potentially this could be more helpful in regards to pain, but again this would be more in the neuropathic category and do not think this is likely as much neuropathic as it is nociceptive. I would agree with him continuing on the duloxetine. We will continue to monitor this patient and certainly would agree that patient needs to be placed on prophylactic antibiotics as this certainly appears as if it is likely diskitis or osteomyelitis based upon really no other findings at this time. Again, I have had the opportunity to review his radiology to this point. Down the road, may want to repeat the MRI and certainly would suggest this be done with contrast as this would be more sensitive to find diskitis or even osteomyelitis. I also wrote an order for urinalysis to determine if this could be the source of his infection, but also question is whether this could be from one of his skin lesions as well from which patient apparently frequently gets. ANNEMARIE:sandra Job ID: [id number] Doc ID: [id number] Zion Garcia DO
[2018-06-26] MEDS: 0.9 % SODIUM CHLORIDE 10 ML SYRINGE IV SCH (23:49)
[2018-06-27] MEDS: HYDROmorphone 2 MG/ML VIAL IV PRN ×4 (00:17→13:58)
[2018-06-27] MEDS: PIPERACILLIN SODIUM/TAZOBACTAM 3.375 GM in DEXTROSE 5% IN WATER 50 ML IV SCH ×2 (01:47→10:04)
[2018-06-27] MEDS: METHOCARBAMOL 1,000 MG/10 ML VIAL IV PRN ×2 (02:21→09:54)
[2018-06-27] MEDS: KETOROLAC 15 MG/ML VIAL IV PRN ×3 (02:43→19:05)
[2018-06-27 03:27] LABS: Appearance,Urine CLEAR; Bacteria,Urine 0 /hpf (0); Bilirubin,Urine NEG (NEG); Color,Urine YELLOW; Glucose,Urine (UA) NEGATIVE (NEG); Leukocyte Esterase,Urine NEG /uL (NEG); Mucus,Urine FEW /hpf (0); Protein,Urine 30 mg/dL (NEG); Specific Gravity,Urine 1.032 (1.000-1.035); Urine Blood NEG mg/dL (<0.03); Urine RBC 2 /hpf (0-1); Urine Squamous Epithelial Cell 0 /hpf (0-4); Urine WBC 1 /hpf (0-4); Urobilinogen,Urine NEG (NEG)
[2018-06-27 04:21] LABS: Amphetamine Screen,Urine NONE DETECTED (NONDETECTED); Benzodiazepines Screen,Urine SUSPECT POSITIVE (NONDETECTED); Cocaine Screen,Urine NONE DETECTED (NONDETECTED); Opiate Screen,Urine SUSPECT POSITIVE (NONDETECTED); Oxycodone, Urine Screen NONE DETECTED (NONDETECTED)
[2018-06-27 05:35] LABS: Basophils # (Auto) 0 K/mcL (0.0-0.3); Basophils % (Auto) 0 % (0.0-2.0); Eosinophils # (Auto) 0 K/mcL (0.0-0.7); Eosinophils % (Auto) 0 % (0.0-7.0); Granulocytes % (Auto) 90.8 % (38.0-78.0); Lymphocytes # (Auto) 0.6 K/mcL (1.5-4.8); Lymphocytes % (Auto) 3.4 % (15.5-49.0); Mean Cell Volume 93.4 fL (80.0-100.0); Mean Corpuscular HGB Conc 33.2 g/dL (31.0-36.0); Monocytes % (Auto) 5.8 % (1.0-12.0); Platelet Count 233 K/mcL (140-440); RBC 3.75 M/mcL (4.50-5.90); Red Cell Distribution Width 13.1 % (11.5-14.5)
[2018-06-27 05:44] LABS: ALT/SGPT 28 U/l (0-40); Albumin 3.5 gm/dL (3.2-5.2); Alkaline Phosphatase 102 U/L (39-117); Bilirubin,Direct < 0.2 mg/dL (0.0-0.3); Blood Urea Nitrogen 25 mg/dl (8-23); Gamma Glutamyl Transpeptidase 51 U/L (8-61); Uric Acid 5.6 mg/dL (2.5-8.0)
[2018-06-27 06:08] LABS: C-Reactive Protein 33.2 mg/dl (0.0-0.8)
[2018-06-27] MEDS: 0.9 % SODIUM CHLORIDE 10 ML SYRINGE IV SCH ×3 (06:38→22:29)
[2018-06-27] MEDS: HYDROcodone/APAP 10/325MG TABLET PO PRN ×3 (06:48→19:07)
[2018-06-27] MEDS ORDERED: VANCOMYCIN PER PHARMACY IV SCH (07:15)
--- NOTE | 2018-06-27 08:07 | Internal Med Progress Note ---
Medical - PN: Subj Patient information: Note initiated : 06/27/18 at 8:00 am Service Date, if different from initiated Date: [] Patient: Oliver Bettencourt a 67 y/o M admitted on 06/26/18 for Back Pain . Chief Complaint: [] Interval history: Mr. Bettencourt is a 67 year old M With chronic low back pain with radiculopathy who presents with acute on chronic pain. History is obtained from as patient is currently sedated from her seizures and sedating medications. Per his he woke up fine Friday however Friday night he started having discomfort when he was home with his son started worsening of pain very agit ated she said he was writhing in pain. He had an appointment to see Dr. Cartagena 4:00 on but could not wait and went into the ED. He was given a prescription for morphine. However pain was still uncontrolled on that. And then came back in early this morning. Pain is been so severe that he has had extremely difficult time and walking. could not recall any aggravating factors such as trauma or sudden twisting. He has been on [place]'s 10/325 8 times a day for years, plus Flexeril and gabapentin. There is no bowel or bladder incontinence. He has peripheral neuropathy with decreased sensations in his legs. He has radiculopathy to the bilateral legs/thigh. His reports no recent illnesses no fevers or chills. He had extensive work-up in the ED including lumbar x-rays chest x-ray lumbar MRI. The results were reviewed with Dr. Gilliland neurosurgeon who felt there is no acute pathology that required any potential surgical intervention. Case was discussed with Dr. Garcia who will manage the pain while inpatient. Case was also discussed with Dr. Ayala given the mildly elevated white blood cell count. CRP is elevated. Other than that and white blood cell count [id number] chemistries unremarkable. He is afebrile. He is also received in an epidural steroid injection by radiology without success. He has been sedated to the point where he required oxygenation. Because of intractable pain patient will be admitted for pain control with Dr. Feng following and Dr. Arredondo was consulted. Antibiotics have been started and blood cultures been started as well. ESR and procalcitonin are pending. MRI did not mention any discitis, however still on the differential. 06/27 Gram-positive cocci growing in both blood draws. No fever at this point. Patient alert and awake. Still have a lot of pain but managing much better than yesterday. Is currently sitting on side of bed with family present. Discussed the typical plan with this scenario. Review of Systems: denies headache/fever/chills/nausea/vomiting/chest or abdominal pain/cough/dyspnea/diarrhea. Otherwise see above. - Constitutional Vitals: Vital Signs Temp Pulse Resp BP Pulse Ox 98.9 F 96 H 24 H 111/78 92 06/27/18 06:35 06/26/18 19:02 06/27/18 06:35 06/27/18 06:35 06/27/18 06:35 Period Temp Pulse Resp BP Sys/Corona Pulse Ox Last 24 Hr 97.7 F-98.9 F 79-112 14-24 92-171/58-93 89-100 Intake and Output 06/26/18 06/27/18 06/27/18 21:59 05:59 13:59 Intake Total 50 550 Output Total 400 400 Balance -350 150 Weight 105.097 kg Intake & Output: Intake & Output 06/26/18 06/27/18 06/27/18 21:59 05:59 13:59 Intake Total 50 550 Output Total 400 400 Balance -350 150 Weight 105.097 kg Intake: IV 50 550 Zosyn 3.375 gm In Dextrose 5% 50 in Water 50 ml @ 100 mls/hr IV Q6H [facility] Rx#:[id number] Output: Void Amount 400 400 Other: Urine Color Dark Yellow Urine Odor Strong Exam: General: Alert and awake, no acute distress Eyes/N/T: EOMI, Head/Neck: neck supple, CV: RRR, No murmurs, Pulm: Clear b/l, no wheezing/rhonchi/rales Abd: soft, nontender, +BS x4 Ext: no clubbing/cyanosis/edema Neuro: Awake, no focal deficits, follows commands and moves all extremities Skin: warm/dry Medical - PN: Obj Da - Labs CBC & Chem 7: 06/27/18 04:05 06/27/18 04:05 Labs: Abnormal Lab Results 05/18/19 05/18/19 05/18/19 04:05 04:05 02:35 WBC 17.1 H RBC 3.75 L Hgb 11.6 L Hct 35.0 L POC Hct MPV Gran % 90.8 H Lymph % (Auto) 3.4 L Gran # 15.5 H Lymph # (Auto) 0.6 L [place] # (Auto) 1.0 H Band Neutrophils % Lymphocytes % Reactive Lymphocytes ESR Sodium Chloride BUN 25 H Glucose 166 H POC Glucose Phosphorus 2.3 L C-Reactive Protein 33.2 H Globulin Urine Protein 30 A Urine RBC 2 H Urine Opiates Screen U Benzodiazepines Scrn 06/27/18 06/26/18 06/26/18 02:35 17:33 08:25 WBC RBC Hgb Hct POC Hct MPV Gran % Lymph % (Auto) Gran # Lymph # (Auto) [place] # (Auto) Band Neutrophils % 20 H Lymphocytes % 3 L Reactive Lymphocytes 3 H ESR Sodium 132 L Chloride 95 L BUN Glucose 163 H POC Glucose Phosphorus 2.6 L C-Reactive Protein Globulin 4.0 H Urine Protein Urine RBC Urine Opiates Screen Suspect positive A U Benzodiazepines Scrn Suspect positive A 06/26/18 06/26/18 06/26/18 08:25 08:25 08:25 WBC 13.0 H RBC 4.17 L Hgb 12.9 L Hct 38.6 L POC Hct MPV 7.2 L Gran % 82.1 H Lymph % (Auto) 6.9 L Gran # 10.7 H Lymph # (Auto) 0.9 L [place] # (Auto) 1.4 H Band Neutrophils % Lymphocytes % Reactive Lymphocytes ESR 90 H Sodium Chloride BUN Glucose POC Glucose Phosphorus C-Reactive Protein 25.9 H Globulin Urine Protein Urine RBC Urine Opiates Screen U Benzodiazepines Scrn 06/26/18 08:24 WBC RBC Hgb Hct POC Hct 39.0 L MPV Gran % Lymph % (Auto) Gran # Lymph # (Auto) [place] # (Auto) Band Neutrophils % Lymphocytes % Reactive Lymphocytes ESR Sodium Chloride BUN Glucose POC Glucose 150 H Phosphorus C-Reactive Protein Globulin Urine Protein Urine RBC Urine Opiates Screen U Benzodiazepines Scrn Meds: Medications Acetaminophen (Tylenol) 650 mg PO Q6HP PRN PRN Reason: PAIN/FEVER > 101 Hydrocodone Bitart/Acetaminophen ([place] 10/325mg) 1 tab PO Q3HP PRN PRN Reason: Pain Last Admin: 06/27/18 06:48 Dose: 1 tab Documented by: Albuterol/Ipratropium (Duoneb) 3 ml NEB Q4HP PRN PRN Reason: Shortness Of Breath Docusate Sodium (Colace) 100 mg PO BID [facility] Last Admin: 06/26/18 21:10 Dose: Not Given Documented by: Duloxetine HCl (Cymbalta) 30 mg PO DAILY [facility] Gabapentin (Neurontin) 600 mg PO BID [facility] Last Admin: 06/26/18 21:10 Dose: Not Given Documented by: Heparin Sodium (Porcine) (Heparin) 5,000 unit SQ Q12 [facility] Hydromorphone HCl (Dilaudid) 0.5 - 2 mg IV Q2HP PRN PRN Reason: PAIN LEVEL > 6 Last Admin: 06/27/18 07:00 Dose: 2 mg Documented by: Potassium Chloride 40 meq/ (Dextrose) 520 mls @ 130 mls/hr IV UD PRN PRN Reason: Potassium < 3 Magnesium Sulfate (Magnesium Sulfate) 2 gm in 50 mls @ 50 mls/hr IV UD PRN PRN Reason: Magnesium </= 1.6 Sodium Chloride (Sodium Chloride 0.9%) 1,000 mls @ 75 mls/hr IV .[id number] [facility] Stop: 06/27/18 21:53 Last Admin: 06/26/18 20:02 Dose: 75 mls/hr Documented by: Piperacillin Sod/Tazobactam (Sod 3.375 gm/ Dextrose) 50 mls @ 100 mls/hr IV Q6H [facility]; Protocol Last Infusion: 06/27/18 02:21 Dose: Infused Documented by: Vancomycin HCl 1,500 mg/ (Sodium Chloride) 500 mls @ 333.3 mls/hr IV Q12H [facility] Ketorolac Tromethamine (Toradol) 15 mg IV Q6HP PRN PRN Reason: Pain Stop: 06/28/18 17:59 Last Admin: 06/27/18 02:43 Dose: 15 mg Documented by: Lactulose (Cephulac) 10 gm PO DAILYP PRN PRN Reason: Constipation Lisinopril (Zestril) 5 mg PO DAILY [facility] Methocarbamol (Robaxin) 1,000 mg IV Q8HP PRN PRN Reason: Muscle Spasm Last Admin: 06/27/18 02:21 Dose: 1,000 mg Documented by: Metoclopramide HCl (Reglan) 10 mg IV Q6HP PRN PRN Reason: Nausea And Vomiting Metoprolol Tartrate (Lopressor) 25 mg PO BID [facility] Last Admin: 06/26/18 21:10 Dose: Not Given Documented by: Naloxone HCl (Narcan) 0.1 mg IV Q2MIN PRN PRN Reason: Opiate Reversal Non-Formulary Medication (Duloxetine Hcl [Cymbalta]) 60 mg PO DAILY JOÃO Ondansetron HCl (Zofran) 4 mg IV Q4HP PRN PRN Reason: Nausea And Vomiting Polyethylene Glycol (Miralax) 17 gm PO DAILYP PRN PRN Reason: Constipation Potassium Chloride (Kdur) 40 meq PO UD PRN PRN Reason: Potssium is 3-3.5 Potassium Chloride (Kdur) 40 meq PO UD PRN PRN Reason: Potassium < 3 Senna (Senokot) 2 tab PO HSP PRN PRN Reason: Constipation Sodium Chloride (Saline Flush) 10 ml IV Q8 [facility] Last Admin: 06/27/18 06:38 Dose: Not Given Documented by: Vancomycin HCl (Vancomycin Per Pharmacy) 1 order IV UD [facility]; Protocol Medical - PN: A/P - Time Spent With Patient Total time spent is greater than 50% in coordination of care (as documented) at patient's floor/unit and/or counseling patient: - Narrative A/P Narrative: A: *Intractable LBP with b/l radiculopathy, acute on chronic: -Imaging reviewed with Dr. Marily wong felt there is no concerns for a potential need for surgery *Likely discitis not evident on initial MRI -ESR/CRP/PCT elevated, leukocytosis with Bandemia, (+) BC's -portal of entry likely break in skin, had deep laceration on finger now healing over *Bacteremia (GPC): *Hypoxia: from sedating meds for pain control and procedures -placed on room air this morning *Peripheral neuropathy: *HTN/HLD: *Fatty Liver: * P: -pain mgmnt per Dr. Garcia -on muscle relaxers/toradol/PRN Dilaudid for now -may repeat MRI with contrast later -case discussed with Dr. Ayala -jen/vanc pending BC -PICC when BC's neg -likely echo, awaiting culture results - -pt/ot -ppx: heparin Medical - PN: Qual - VTE Deep Vein Thrombosis/Pulmonary Embolism Present on Admission: No
--- NOTE | 2018-06-27 08:23 | Brief Operative Note ---
Date of procedure: 06/27/18 (SOAP note) Surgeon: Zion Garcia S- Pts. pain is slightly improved this AM rating at 6/10 when sitting still. Pt. is able to talk to me this AM which he could not do coherently last PM in the ER. Pt. added information to his history that included gradual increase in back pain over the last month. Previously stated by that pain became significant this past Friday06/24/18. This would be more consistent with a discitis or osteomyelitis. O- Pt. appears to have much better initial appearance and color this AM. He is sitting up in bed and eating breakfast. Pt. coherent and appropriate. HRR Lungs clear to auscultation. Abd. soft, Neuro- no lower extremity weakness. quadriceps, hamstring, dorsiflexion, plantarflexion, ankle inversion, and eversion strength equal bilaterally. No complaints of sensory deficit. WBC- elevated from 13 to 17 Cultures- Two positive cultures to this point of gram positive cocci in clusters. Consistent with likely Staph Aureus. Final C&S pending. Pain- Score 6/10 A- Intractable Back Pain improved today. Likely Osteomyelitis/Discitis with negative findings on MRI appears to be responding to Vanco and Zosyn. Failed Back Syndrome P- Would recommend continue present pain control regimen. Pt. appears to be responding to Antibiotics and likely this will continue to allow pain to improve. 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 I will just follow for pain control as needed. I will be available via phone over next two days likely re- evaluate on Friday.
[2018-06-27] MEDS ORDERED: VANCOMYCIN 1,500 MG in 0.9 % SODIUM CHLORIDE 500 ML IV SCH (09:00)
[2018-06-27] MEDS ORDERED: DULoxetine 30 MG CAPSULE PO SCH (09:00)
[2018-06-27 09:27] LABS: Band Neutrophils % 16 % (0-10); Lymphocytes % 2 % (15-49); Monocytes % (Manual) 6 % (1-12); Platelet Estimate NORMAL (NORMAL); RBC Morphology NORMAL (NORMAL); Segmented Neutrophils % 76 % (38-78)
[2018-06-27] MEDS ORDERED: NICOTINE 2MG GUM PO PRN (09:36)
[2018-06-27] MEDS: GABAPENTIN 300 MG CAPSULE PO SCH ×2 (09:59→21:02)
[2018-06-27] MEDS: HEPARIN 5,000 UNIT/ML VIAL SQ SCH ×2 (10:00→21:01)
[2018-06-27] MEDS: METOPROLOL TARTRATE 25 MG TABLET PO SCH ×2 (10:00→21:02)
[2018-06-27] MEDS: DOCUSATE SODIUM 100 MG CAPSULE PO SCH ×2 (10:00→21:02)
[2018-06-27] MEDS: DULoxetine 30 MG CAPSULE PO SCH (10:16)
[2018-06-27] MEDS: LISINOPRIL 5 MG TABLET PO SCH (10:16)
--- NOTE | 2018-06-27 10:34 | Event Note ---
ER physician (DR Jack) called me yesterday evening about this patient with severe back pain. Given acuteness, and accompanying vital signs derangements (tachycardia 140s HR) diaphoresis; recs for admitting patient. Send ESR and CRP. Consider Thoracic spine MRI, send blood cultures. Blood Cx this am with preliminary growth of GPC. Spoke with Dr Teixeira about MRI thoracic spine w/o contrast, antibiotics (Vanc per pharmacy dosing and Cefazolin 2 g q8 hrs). Once we know it is methicillin sensitive or methicillin resistant; further deescalation can be considered. TTE on Friday or Friday (if it is Staph aureus) or MRI is +ve for osteomyelitis. Repeat blood Cx every other day until negative. will follow with an official consult note on Friday am. Jose Ayala MD Infectious diseases
[2018-06-27] MEDS ORDERED: LORazepam 2 MG/ML VIAL IV ONE (13:27)
[2018-06-27] MEDS: ceFAZolin 2 GM in DEXTROSE 5% IN WATER 50 ML IV SCH ×2 (14:01→22:23)
--- NOTE | 2018-06-27 16:30 | Magnetic Resonance Report ---
CLINICAL INFORMATION: Back pain COMPARISON: None. TECHNIQUE: Sagittal T2, sagittal T1 FLAIR, sagittal STIR and axial T2 images were acquired of the thoracic spine. FINDINGS: The thoracic spine is normal in curvature and alignment and there are no marrow signal abnormalities. The thoracic cord is normal in contour and caliber and without focal abnormality. The discs are all well hydrated and show no evidence of extrusion or protrusion. The central canal, lateral recesses and IV foramina are all unremarkable. IMPRESSION: Normal Interpreted and Authenticated by: Damion Patel 06/27/18
[2018-06-27] MEDS: 0.9 % SODIUM CHLORIDE 1,000 ML IV SCH ×2 (17:29→17:38)
[2018-06-27] MEDS: POLYETHYLENE GLYCOL 3350 17 GM PACKET PO PRN (19:17)
[2018-06-27] MEDS ORDERED: ceFAZolin 1 GM VIAL ONE (22:14)
[2018-06-28] MEDS: HYDROcodone/APAP 10/325MG TABLET PO PRN ×5 (03:04→21:53)
[2018-06-28] MEDS: METHOCARBAMOL 1,000 MG/10 ML VIAL IV PRN ×3 (03:05→19:18)
[2018-06-28] MEDS: KETOROLAC 15 MG/ML VIAL IV PRN ×2 (04:31→11:04)
[2018-06-28 05:14] LABS: Basophils # (Auto) 0 K/mcL (0.0-0.3); Basophils % (Auto) 0.1 % (0.0-2.0); Eosinophils # (Auto) 0 K/mcL (0.0-0.7); Eosinophils % (Auto) 0 % (0.0-7.0); Granulocytes % (Auto) 89.3 % (38.0-78.0); Lymphocytes # (Auto) 0.8 K/mcL (1.5-4.8); Lymphocytes % (Auto) 5.1 % (15.5-49.0); Mean Cell Volume 92.8 fL (80.0-100.0); Mean Corpuscular HGB Conc 33.6 g/dL (31.0-36.0); Monocytes # (Auto) 0.9 K/mcL (0.1-0.9); Monocytes % (Auto) 5.5 % (1.0-12.0); Platelet Count 266 K/mcL (140-440); RBC 3.52 M/mcL (4.50-5.90); Red Cell Distribution Width 13.4 % (11.5-14.5)
[2018-06-28] MEDS: ceFAZolin 1 GM VIAL ONE ×2 (05:16→05:21)
[2018-06-28] MEDS: ceFAZolin 2 GM in DEXTROSE 5% IN WATER 50 ML IV SCH ×3 (05:18→21:54)
[2018-06-28] MEDS: 0.9 % SODIUM CHLORIDE 10 ML SYRINGE IV SCH ×3 (05:19→21:55)
[2018-06-28 05:45] LABS: Blood Urea Nitrogen 31 mg/dl (8-23)
--- NOTE | 2018-06-28 08:08 | Internal Med Progress Note ---
Medical - PN: Subj Patient information: Note initiated : 06/28/18 at 8:05 am Service Date, if different from initiated Date: [] Patient: Oliver Bettencourt a 67 y/o M admitted on 06/26/18 for Back Pain . Chief Complaint: [] Interval history: Mr. Bettencourt is a 67 year old M With chronic low back pain with radiculopathy who presents with acute on chronic pain. History is obtained from as patient is currently sedated from her seizures and sedating medications. Per his he woke up fine Friday however Friday night he started having discomfort when he was home with his son started worsening of pain very agit ated she said he was writhing in pain. He had an appointment to see Dr. Cartagena 4:00 on but could not wait and went into the ED. He was given a prescription for morphine. However pain was still uncontrolled on that. And then came back in early this morning. Pain is been so severe that he has had extremely difficult time and walking. could not recall any aggravating factors such as trauma or sudden twisting. He has been on [place]'s 10/325 8 times a day for years, plus Flexeril and gabapentin. There is no bowel or bladder incontinence. He has peripheral neuropathy with decreased sensations in his legs. He has radiculopathy to the bilateral legs/thigh. His reports no recent illnesses no fevers or chills. He had extensive work-up in the ED including lumbar x-rays chest x-ray lumbar MRI. The results were reviewed with Dr. Gilliland neurosurgeon who felt there is no acute pathology that required any potential surgical intervention. Case was discussed with Dr. Garcia who will manage the pain while inpatient. Case was also discussed with Dr. Ayala given the mildly elevated white blood cell count. CRP is elevated. Other than that and white blood cell count [id number] chemistries unremarkable. He is afebrile. He is also received in an epidural steroid injection by radiology without success. He has been sedated to the point where he required oxygenation. Because of intractable pain patient will be admitted for pain control with Dr. Feng following and Dr. Arredondo was consulted. Antibiotics have been started and blood cultures been started as well. ESR and procalcitonin are pending. MRI did not mention any discitis, however still on the differential. 06/27 Gram-positive cocci growing in both blood draws. No fever at this point. Patient alert and awake. Still have a lot of pain but managing much better than yesterday. Is currently sitting on side of bed with family present. Discussed the typical plan with this scenario as far as waiting for repeat cultures to become negative. 06/28 Back pain present but better controlled. No new complaints family at bedside. Review of Systems: denies headache/fever/chills/nausea/vomiting/chest or abdominal pain/cough/dyspnea/diarrhea. Otherwise see above. - Constitutional Vitals: Vital Signs Temp Pulse Resp BP Pulse Ox 99.3 F H 76 18 115/77 92 06/28/18 04:31 06/28/18 04:31 06/28/18 04:06/28/18 04:06/28/18 04:31 Period Temp Pulse Resp BP Sys/Corona Pulse Ox Last 24 Hr 98.0 F-99.3 F 64-85 16-20 106-150/57-109 89-96 Intake and Output 06/27/18 06/28/18 06/28/18 21:59 05:59 13:59 Intake Total 50 650 1050 Output Total 250 675 Balance -200 -25 1050 Weight 106.413 kg Intake & Output: Intake & Output 06/27/18 06/28/18 06/28/18 21:59 05:59 13:59 Intake Total 50 650 1050 Output Total 250 675 Balance -200 -25 1050 Weight 106.413 kg Intake: IV 50 50 1050 Ancef 2 gm In Dextrose 5% in 50 50 50 Water 50 ml @ 100 mls/hr IV Q8H [facility] Rx#:[id number] Oral 600 Output: Void Amount 250 675 Exam: General: Alert and awake, no acute distress Eyes/N/T: EOMI, Head/Neck: neck supple, CV: RRR, No murmurs, Pulm: Clear b/l, no wheezing/rhonchi/rales Abd: soft, nontender, +BS x4 Ext: no clubbing/cyanosis/edema Neuro: Awake, no focal deficits, follows commands and moves all extremities Skin: warm/dry Medical - PN: Obj Da - Labs CBC & Chem 7: 06/28/18 04:05 06/28/18 04:05 Labs: Abnormal Lab Results 06/28/18 06/28/18 06/28/18 04:05 04:05 04:05 WBC 15.6 H RBC 3.52 L Hgb 11.0 L Hct 32.6 L POC Hct MPV Gran % 89.3 H Lymph % (Auto) 5.1 L Gran # 13.9 H Lymph # (Auto) 0.8 L [place] # (Auto) Band Neutrophils % Lymphocytes % Reactive Lymphocytes ESR Sodium Chloride BUN 31 H Glucose 152 H POC Glucose Phosphorus C-Reactive Protein 21.3 H Globulin Urine Protein Urine RBC Urine Opiates Screen U Benzodiazepines Scrn 06/27/18 06/27/18 06/27/18 04:05 04:05 04:05 WBC 17.1 H RBC 3.75 L Hgb 11.6 L Hct 35.0 L POC Hct MPV Gran % 90.8 H Lymph % (Auto) 3.4 L Gran # 15.5 H Lymph # (Auto) 0.6 L [place] # (Auto) 1.0 H Band Neutrophils % 16 H Lymphocytes % 2 L Reactive Lymphocytes ESR Sodium Chloride BUN 25 H Glucose 166 H POC Glucose Phosphorus 2.3 L C-Reactive Protein 33.2 H Globulin Urine Protein Urine RBC Urine Opiates Screen U Benzodiazepines Scrn 06/27/18 06/27/18 06/26/18 02:35 02:35 17:33 WBC RBC Hgb Hct POC Hct MPV Gran % Lymph % (Auto) Gran # Lymph # (Auto) [place] # (Auto) Band Neutrophils % Lymphocytes % Reactive Lymphocytes ESR Sodium 132 L Chloride 95 L BUN Glucose 163 H POC Glucose Phosphorus 2.6 L C-Reactive Protein Globulin 4.0 H Urine Protein 30 A Urine RBC 2 H Urine Opiates Screen Suspect positive A U Benzodiazepines Scrn Suspect positive A 06/26/18 06/26/18 06/26/18 08:25 08:25 08:25 WBC RBC Hgb Hct POC Hct MPV Gran % Lymph % (Auto) Gran # Lymph # (Auto) [place] # (Auto) Band Neutrophils % 20 H Lymphocytes % 3 L Reactive Lymphocytes 3 H ESR 90 H Sodium Chloride BUN Glucose POC Glucose Phosphorus C-Reactive Protein 25.9 H Globulin Urine Protein Urine RBC Urine Opiates Screen U Benzodiazepines Scrn 06/26/18 06/26/18 08:25 08:24 WBC 13.0 H RBC 4.17 L Hgb 12.9 L Hct 38.6 L POC Hct 39.0 L MPV 7.2 L Gran % 82.1 H Lymph % (Auto) 6.9 L Gran # 10.7 H Lymph # (Auto) 0.9 L [place] # (Auto) 1.4 H Band Neutrophils % Lymphocytes % Reactive Lymphocytes ESR Sodium Chloride BUN Glucose POC Glucose 150 H Phosphorus C-Reactive Protein Globulin Urine Protein Urine RBC Urine Opiates Screen U Benzodiazepines Scrn Meds: Medications Acetaminophen (Tylenol) 650 mg PO Q6HP PRN PRN Reason: PAIN/FEVER > 101 Hydrocodone Bitart/Acetaminophen ([place] 10/325mg) 1 tab PO Q3HP PRN PRN Reason: Pain Last Admin: 06/28/18 03:04 Dose: 1 tab Documented by: Albuterol/Ipratropium (Duoneb) 3 ml NEB Q4HP PRN PRN Reason: Shortness Of Breath Docusate Sodium (Colace) 100 mg PO BID [facility] Last Admin: 06/27/18 21:02 Dose: 100 mg Documented by: Duloxetine HCl (Cymbalta) 90 mg PO DAILY [facility] Last Admin: 06/27/18 10:16 Dose: 90 mg Documented by: Gabapentin (Neurontin) 600 mg PO BID [facility] Last Admin: 06/27/18 21:02 Dose: 600 mg Documented by: Heparin Sodium (Porcine) (Heparin) 5,000 unit SQ Q12 [facility] Last Admin: 06/27/18 21:01 Dose: 5,000 unit Documented by: Hydromorphone HCl (Dilaudid) 0.5 - 2 mg IV Q2HP PRN PRN Reason: PAIN LEVEL > 6 Last Admin: 06/27/18 13:58 Dose: 2 mg Documented by: Potassium Chloride 40 meq/ (Dextrose) 520 mls @ 130 mls/hr IV UD PRN PRN Reason: Potassium < 3 Magnesium Sulfate (Magnesium Sulfate) 2 gm in 50 mls @ 50 mls/hr IV UD PRN PRN Reason: Magnesium </= 1.6 Cefazolin Sodium 2 gm/ (Dextrose) 50 mls @ 100 mls/hr IV Q8H [facility]; Protocol Last Infusion: 06/28/18 06:05 Dose: Infused Documented by: Ketorolac Tromethamine (Toradol) 15 mg IV Q6HP PRN PRN Reason: Pain Stop: 06/28/18 17:59 Last Admin: 06/28/18 04:31 Dose: 15 mg Documented by: Lactulose (Cephulac) 10 gm PO DAILYP PRN PRN Reason: Constipation Lisinopril (Zestril) 5 mg PO DAILY [facility] Last Admin: 06/27/18 10:16 Dose: 5 mg Documented by: Methocarbamol (Robaxin) 1,000 mg IV Q8HP PRN PRN Reason: Muscle Spasm Last Admin: 06/28/18 03:05 Dose: 1,000 mg Documented by: Metoclopramide HCl (Reglan) 10 mg IV Q6HP PRN PRN Reason: Nausea And Vomiting Metoprolol Tartrate (Lopressor) 25 mg PO BID [facility] Last Admin: 06/27/18 21:02 Dose: Not Given Documented by: Naloxone HCl (Narcan) 0.1 mg IV Q2MIN PRN PRN Reason: Opiate Reversal Ondansetron HCl (Zofran) 4 mg IV Q4HP PRN PRN Reason: Nausea And Vomiting Nicotine 2mg Gum 1 dose PO Q1HP PRN PRN Reason: Nicotine Cravings Stop: 07/07/18 09:35 Polyethylene Glycol (Miralax) 17 gm PO DAILYP PRN PRN Reason: Constipation Last Admin: 06/27/18 19:17 Dose: 17 gm Documented by: Potassium Chloride (Kdur) 40 meq PO UD PRN PRN Reason: Potssium is 3-3.5 Potassium Chloride (Kdur) 40 meq PO UD PRN PRN Reason: Potassium < 3 Senna (Senokot) 2 tab PO HSP PRN PRN Reason: Constipation Sodium Chloride (Saline Flush) 10 ml IV Q8 [facility] Last Admin: 06/28/18 05:19 Dose: Not Given Documented by: Medical - PN: A/P - Time Spent With Patient Total time spent is greater than 50% in coordination of care (as documented) at patient's floor/unit and/or counseling patient: - Narrative A/P Narrative: A: *Intractable LBP with b/l radiculopathy, acute on chronic: Impoving -Imaging reviewed with Dr. Marily wong felt there is no concerns for a potential need for surgery *Likely discitis not evident on initial MRI -ESR/CRP/PCT elevated, leukocytosis with Bandemia, (+) BC's -portal of entry likely break in skin, had deep laceration on finger now healing over *MSSA Bacteremia: -No vegetations on echo *Hypoxia: from sedating meds for pain control and procedures -REsolved *Peripheral neuropathy: *HTN/HLD: *Fatty Liver: * P: -pain mgmnt per Dr. Garcia -on muscle relaxers/toradol/PRN Dilaudid for now -ID following -Cefazolin per ID -PICC when BC's neg -pending repeat BC - -pt/ot -ppx: heparin Medical - PN: Qual - VTE Deep Vein Thrombosis/Pulmonary Embolism Present on Admission: No
[2018-06-28] MEDS: LISINOPRIL 5 MG TABLET PO SCH (09:08)
[2018-06-28] MEDS: GABAPENTIN 300 MG CAPSULE PO SCH ×2 (09:08→20:43)
[2018-06-28] MEDS: DOCUSATE SODIUM 100 MG CAPSULE PO SCH ×2 (09:08→20:43)
[2018-06-28] MEDS: METOPROLOL TARTRATE 25 MG TABLET PO SCH ×2 (09:08→20:43)
[2018-06-28] MEDS: DULoxetine 30 MG CAPSULE PO SCH (09:09)
[2018-06-28] MEDS: HEPARIN 5,000 UNIT/ML VIAL SQ SCH ×2 (09:09→20:43)
[2018-06-28] MEDS: POLYETHYLENE GLYCOL 3350 17 GM PACKET PO PRN (11:05)
[2018-06-28] MEDS ORDERED: POTASSIUM CHLORIDE 20 MEQ TABLET PO PRN ×2 (11:08)
[2018-06-28] MEDS ORDERED: ONDANSETRON 4 MG/2 ML VIAL IV PRN (11:08)
[2018-06-28] MEDS ORDERED: IPRATROPIUM/ALBUTEROL 3 ML AMPUL.NEB NEB PRN (11:08)
[2018-06-28] MEDS ORDERED: NALOXONE HCL 0.4 MG/ML VIAL IV PRN (11:08)
[2018-06-28] MEDS ORDERED: ACETAMINOPHEN 325 MG TABLET PO PRN (11:08)
[2018-06-28] MEDS ORDERED: KETOROLAC 15 MG/ML VIAL IV PRN (11:08)
[2018-06-28] MEDS ORDERED: MAGNESIUM SULFATE 2 GM/50 ML BAG IV PRN (11:08)
[2018-06-28] MEDS ORDERED: METOCLOPRAMIDE 10 MG/2 ML VIAL IV PRN (11:08)
[2018-06-28] MEDS ORDERED: POLYETHYLENE GLYCOL 3350 17 GM PACKET PO PRN (11:08)
[2018-06-28] MEDS ORDERED: POTASSIUM CHLORIDE 40 MEQ in DEXTROSE 5% IN WATER 500 ML IV PRN (11:08)
[2018-06-28] MEDS ORDERED: LACTULOSE 20 GM/30 ML ORAL.SOL PO PRN (11:08)
[2018-06-28] MEDS: HYDROmorphone 2 MG/ML VIAL IV PRN ×2 (19:57→23:46)
[2018-06-28] MEDS ORDERED: SENNOSIDES 1 TABLET PO PRN (21:00)
[2018-06-28] MEDS: NICOTINE 2MG GUM PO PRN ×3 (21:00→23:00)
[2018-06-29] MEDS: NICOTINE 2MG GUM PO PRN ×2 (01:00)
[2018-06-29] MEDS: HYDROcodone/APAP 10/325MG TABLET PO PRN ×4 (01:09→13:51)
[2018-06-29] MEDS: HYDROmorphone 2 MG/ML VIAL IV PRN ×6 (03:53→13:29)
[2018-06-29] MEDS: METHOCARBAMOL 1,000 MG/10 ML VIAL IV PRN (03:54)
[2018-06-29 05:48] LABS: Basophils # (Auto) 0 K/mcL (0.0-0.3); Basophils % (Auto) 0 % (0.0-2.0); Eosinophils # (Auto) 0 K/mcL (0.0-0.7); Eosinophils % (Auto) 0 % (0.0-7.0); Granulocytes % (Auto) 82.5 % (38.0-78.0); Lymphocytes # (Auto) 1.2 K/mcL (1.5-4.8); Lymphocytes % (Auto) 9.9 % (15.5-49.0); Mean Corpuscular HGB Conc 33.2 g/dL (31.0-36.0); Monocytes % (Auto) 7.6 % (1.0-12.0); Platelet Count 295 K/mcL (140-440); RBC 3.69 M/mcL (4.50-5.90); Red Cell Distribution Width 13.1 % (11.5-14.5)
[2018-06-29] MEDS: ceFAZolin 2 GM in DEXTROSE 5% IN WATER 50 ML IV SCH (05:48)
[2018-06-29] MEDS: 0.9 % SODIUM CHLORIDE 10 ML SYRINGE IV SCH (05:53)
[2018-06-29 05:54] LABS: C-Reactive Protein 9.4 mg/dl (0.0-0.8)
[2018-06-29 05:56] LABS: Blood Urea Nitrogen 22 mg/dl (8-23)
--- NOTE | 2018-06-29 07:01 | Internal Med Progress Note ---
Medical - PN: Subj Patient information: Note initiated : 06/29/18 at 6:59 am Service Date, if different from initiated Date: [] Patient: Oliver Bettencourt a 67 y/o M admitted on 06/28/18 for Back Pain . Chief Complaint: [] Interval history: Mr. Bettencourt is a 67 year old M With chronic low back pain with radiculopathy who presents with acute on chronic pain. History is obtained from as patient is currently sedated from her seizures and sedating medications. Per his he woke up fine Friday however Friday night he started having discomfort when he was home with his son started worsening of pain very agit ated she said he was writhing in pain. He had an appointment to see Dr. Cartagena 4:00 on but could not wait and went into the ED. He was given a prescription for morphine. However pain was still uncontrolled on that. And then came back in early this morning. Pain is been so severe that he has had extremely difficult time and walking. could not recall any aggravating factors such as trauma or sudden twisting. He has been on [place]'s 10/325 8 times a day for years, plus Flexeril and gabapentin. There is no bowel or bladder incontinence. He has peripheral neuropathy with decreased sensations in his legs. He has radiculopathy to the bilateral legs/thigh. His reports no recent illnesses no fevers or chills. He had extensive work-up in the ED including lumbar x-rays chest x-ray lumbar MRI. The results were reviewed with Dr. Gilliland neurosurgeon who felt there is no acute pathology that required any potential surgical intervention. Case was discussed with Dr. Garcia who will manage the pain while inpatient. Case was also discussed with Dr. Ayala given the mildly elevated white blood cell count. CRP is elevated. Other than that and white blood cell count [id number] chemistries unremarkable. He is afebrile. He is also received in an epidural steroid injection by radiology without success. He has been sedated to the point where he required oxygenation. Because of intractable pain patient will be admitted for pain control with Dr. Feng following and Dr. Arredondo was consulted. Antibiotics have been started and blood cultures been started as well. ESR and procalcitonin are pending. MRI did not mention any discitis, however still on the differential. 06/27 Gram-positive cocci growing in both blood draws. No fever at this point. Patient alert and awake. Still have a lot of pain but managing much better than yesterday. Is currently sitting on side of bed with family present. Discussed the typical plan with this scenario as far as waiting for repeat cultures to become negative. 06/28 Back pain present but better controlled. No new complaints family at bedside. 06/29 Uncomfortable night last night. Had increased pain and cannot get comfortable. Poor sleep. No other new complaints. Awaiting repeat blood cultures. Review of Systems: denies headache/fever/chills/nausea/vomiting/chest or abdominal pain/cough/dyspnea/diarrhea. Otherwise see above. - Constitutional Vitals: Vital Signs Temp Pulse Resp BP Pulse Ox 99.0 F 64 20 148/68 91 06/29/18 04:15 06/29/18 04:15 06/29/18 04:15 06/29/18 04:15 06/29/18 04:15 Period Temp Pulse Resp BP Sys/Corona Pulse Ox Last 24 Hr 97.9 F-99.0 F 61-72 16-20 124-148/68-88 91-96 Intake and Output 06/28/18 06/29/18 06/29/18 21:59 05:59 13:59 Intake Total 370 850 175 Output Total 675 600 Balance 370 175 -425 Weight 106.608 kg Intake & Output: Intake & Output 06/28/18 06/29/18 06/29/18 21:59 05:59 13:59 Intake Total 370 850 175 Output Total 675 600 Balance 370 175 -425 Weight 106.608 kg Intake: IV 50 50 Ancef 2 gm In Dextrose 5% in 50 50 Water 50 ml @ 100 mls/hr IV Q8H [facility] Rx#:[id number] Oral 320 800 175 Output: Void Amount 675 600 Other: Meal Dinner Percent of Meal Consumed 100% # Voids 2 Exam: General: Alert and awake, no acute distress Eyes/N/T: EOMI, Head/Neck: neck supple, CV: RRR, No murmurs, Pulm: Clear b/l, no wheezing/rhonchi/rales Abd: soft, nontender, +BS x4 Ext: no clubbing/cyanosis/edema Neuro: Awake, no focal deficits, follows commands and moves all extremities Skin: warm/dry Medical - PN: Obj Da - Labs CBC & Chem 7: 06/29/18 04:10 06/29/18 04:10 Labs: Abnormal Lab Results 06/29/18 06/29/18 06/29/18 04:10 04:10 04:10 WBC 12.5 H RBC 3.69 L Hgb 11.4 L Hct 34.3 L POC Hct MPV 7.2 L Gran % 82.5 H Lymph % (Auto) 9.9 L Gran # 10.3 H Lymph # (Auto) 1.2 L [place] # (Auto) 1.0 H Band Neutrophils % Lymphocytes % Reactive Lymphocytes ESR Sodium Chloride BUN Creatinine 0.6 L Glucose 127 H POC Glucose Calcium 8.5 L Phosphorus C-Reactive Protein 9.4 H Globulin Urine Protein Urine RBC Urine Opiates Screen U Benzodiazepines Scrn 06/28/18 06/28/18 06/28/18 04:05 04:05 04:05 WBC 15.6 H RBC 3.52 L Hgb 11.0 L Hct 32.6 L POC Hct MPV Gran % 89.3 H Lymph % (Auto) 5.1 L Gran # 13.9 H Lymph # (Auto) 0.8 L [place] # (Auto) Band Neutrophils % Lymphocytes % Reactive Lymphocytes ESR Sodium Chloride BUN 31 H Creatinine Glucose 152 H POC Glucose Calcium Phosphorus C-Reactive Protein 21.3 H Globulin Urine Protein Urine RBC Urine Opiates Screen U Benzodiazepines Scrn 06/27/18 06/27/18 06/27/18 04:05 04:05 04:05 WBC 17.1 H RBC 3.75 L Hgb 11.6 L Hct 35.0 L POC Hct MPV Gran % 90.8 H Lymph % (Auto) 3.4 L Gran # 15.5 H Lymph # (Auto) 0.6 L [place] # (Auto) 1.0 H Band Neutrophils % 16 H Lymphocytes % 2 L Reactive Lymphocytes ESR Sodium Chloride BUN 25 H Creatinine Glucose 166 H POC Glucose Calcium Phosphorus 2.3 L C-Reactive Protein 33.2 H Globulin Urine Protein Urine RBC Urine Opiates Screen U Benzodiazepines Scrn 06/27/18 06/27/18 06/26/18 02:35 02:35 17:33 WBC RBC Hgb Hct POC Hct MPV Gran % Lymph % (Auto) Gran # Lymph # (Auto) [place] # (Auto) Band Neutrophils % Lymphocytes % Reactive Lymphocytes ESR Sodium 132 L Chloride 95 L BUN Creatinine Glucose 163 H POC Glucose Calcium Phosphorus 2.6 L C-Reactive Protein Globulin 4.0 H Urine Protein 30 A Urine RBC 2 H Urine Opiates Screen Suspect positive A U Benzodiazepines Scrn Suspect positive A 06/26/18 06/26/18 06/26/18 08:25 08:25 08:25 WBC RBC Hgb Hct POC Hct MPV Gran % Lymph % (Auto) Gran # Lymph # (Auto) [place] # (Auto) Band Neutrophils % 20 H Lymphocytes % 3 L Reactive Lymphocytes 3 H ESR 90 H Sodium Chloride BUN Creatinine Glucose POC Glucose Calcium Phosphorus C-Reactive Protein 25.9 H Globulin Urine Protein Urine RBC Urine Opiates Screen U Benzodiazepines Scrn 06/26/18 06/26/18 08:25 08:24 WBC 13.0 H RBC 4.17 L Hgb 12.9 L Hct 38.6 L POC Hct 39.0 L MPV 7.2 L Gran % 82.1 H Lymph % (Auto) 6.9 L Gran # 10.7 H Lymph # (Auto) 0.9 L [place] # (Auto) 1.4 H Band Neutrophils % Lymphocytes % Reactive Lymphocytes ESR Sodium Chloride BUN Creatinine Glucose POC Glucose 150 H Calcium Phosphorus C-Reactive Protein Globulin Urine Protein Urine RBC Urine Opiates Screen U Benzodiazepines Scrn Meds: Medications Acetaminophen (Tylenol) 650 mg PO Q6HP PRN PRN Reason: PAIN/FEVER > 101 Hydrocodone Bitart/Acetaminophen ([place] 10/325mg) 1 tab PO Q3HP PRN PRN Reason: Pain Last Admin: 06/29/18 05:46 Dose: 1 tab Documented by: Albuterol/Ipratropium (Duoneb) 3 ml NEB Q4HP PRN PRN Reason: Shortness Of Breath Docusate Sodium (Colace) 100 mg PO BID [facility] Last Admin: 06/28/18 20:43 Dose: 100 mg Documented by: Duloxetine HCl (Cymbalta) 90 mg PO DAILY [facility] Gabapentin (Neurontin) 600 mg PO BID [facility] Last Admin: 06/28/18 20:43 Dose: 600 mg Documented by: Heparin Sodium (Porcine) (Heparin) 5,000 unit SQ Q12 [facility] Last Admin: 06/28/18 20:43 Dose: 5,000 unit Documented by: Hydromorphone HCl (Dilaudid) 0.5 - 2 mg IV Q2HP PRN PRN Reason: PAIN LEVEL > 6 Last Admin: 06/29/18 06:40 Dose: 2 mg Documented by: Cefazolin Sodium 2 gm/ (Dextrose) 50 mls @ 100 mls/hr IV Q8H [facility]; Protocol Last Admin: 06/29/18 05:48 Dose: 100 mls/hr Documented by: Potassium Chloride 40 meq/ (Dextrose) 520 mls @ 130 mls/hr IV UD PRN PRN Reason: Potassium < 3 Magnesium Sulfate (Magnesium Sulfate) 2 gm in 50 mls @ 50 mls/hr IV UD PRN PRN Reason: Magnesium </= 1.6 Lactulose (Cephulac) 10 gm PO DAILYP PRN PRN Reason: Constipation Lisinopril (Zestril) 5 mg PO DAILY [facility] Methocarbamol (Robaxin) 1,000 mg IV Q8HP PRN PRN Reason: Muscle Spasm Last Admin: 06/29/18 03:54 Dose: 1,000 mg Documented by: Metoclopramide HCl (Reglan) 10 mg IV Q6HP PRN PRN Reason: Nausea And Vomiting Metoprolol Tartrate (Lopressor) 25 mg PO BID [facility] Last Admin: 06/28/18 20:43 Dose: 25 mg Documented by: Naloxone HCl (Narcan) 0.1 mg IV Q2MIN PRN PRN Reason: Opiate Reversal Ondansetron HCl (Zofran) 4 mg IV Q4HP PRN PRN Reason: Nausea And Vomiting Nicotine 2mg Gum 1 dose PO Q1HP PRN PRN Reason: Nicotine Cravings Stop: 07/07/18 09:35 Last Admin: 06/29/18 01:00 Dose: 1 dose Documented by: Polyethylene Glycol (Miralax) 17 gm PO DAILYP PRN PRN Reason: Constipation Potassium Chloride (Kdur) 40 meq PO UD PRN PRN Reason: Potssium is 3-3.5 Potassium Chloride (Kdur) 40 meq PO UD PRN PRN Reason: Potassium < 3 Senna (Senokot) 2 tab PO HSP PRN PRN Reason: Constipation Sodium Chloride (Saline Flush) 10 ml IV Q8 [facility] Last Admin: 06/29/18 05:53 Dose: 10 ml Documented by: Medical - PN: A/P - Time Spent With Patient Total time spent is greater than 50% in coordination of care (as documented) at patient's floor/unit and/or counseling patient: - Narrative A/P Narrative: A: *Intractable LBP with b/l radiculopathy, acute on chronic: Improving -Imaging reviewed with Dr. Calixto acute felt there is no concerns for a potential need for surgery *Likely discitis not evident on initial MRI -CRP/PCT/leukocytosis improving -portal of entry likely break in skin, had deep laceration on finger now healing over *MSSA Bacteremia: -No vegetations on echo *Hypoxia: from sedating meds for pain control and procedures -REsolved *Peripheral neuropathy: *HTN/HLD: *Fatty Liver: * P: -pain mgmnt per Dr. Garcia -on muscle relaxers/toradol/PRN Dilaudid for now -ID following -Cefazolin per ID -?repeat lumbar MRI with contrast -PICC when BC's neg -pending repeat (06/28) BC - -pt/ot -ppx: heparin Medical - PN: Qual - VTE Deep Vein Thrombosis/Pulmonary Embolism Present on Admission: No
[2018-06-29] MEDS: HEPARIN 5,000 UNIT/ML VIAL SQ SCH (08:15)
[2018-06-29] MEDS: GABAPENTIN 300 MG CAPSULE PO SCH (08:17)
[2018-06-29] MEDS: DOCUSATE SODIUM 100 MG CAPSULE PO SCH (08:18)
[2018-06-29] MEDS: METOPROLOL TARTRATE 25 MG TABLET PO SCH (08:19)
[2018-06-29] MEDS ORDERED: LISINOPRIL 5 MG TABLET PO SCH (09:00)
[2018-06-29] MEDS ORDERED: DULoxetine 30 MG CAPSULE PO SCH (09:00)
--- NOTE | 2018-06-29 11:21 | Infectious Disease Consult ---
History of Present Illness Patient information: Note initiated : 06/29/18 at 10:37 am Service Date, if different from initiated Date: [] Patient: Oliver Bettencourt 67 y/o M admitted on 06/28/18 for Back Pain . Chief Complaint: [] Consult date: 06/29/18 Requesting Physician: Juan Francisco Teixeira Reason for Consult: Staph aureus bacteremia Chief complaint: my back hurts History of present illness: 67-year-old man with past medical history of: - chronic lumbosacral disc disease, multilevel disc disease [L2-L4] , status post back surgeries with hardware in upper and lower back Patient was admitted on 06/26/18 with complaints of acute back pain for last week. Site of the pain was mainly lower back and right sacroiliac joint, rated at around 10 out of 10 on day of presentation. Patient denied any documented fever or chills, falls or back trauma. As noted above he has history of back disease and in the past had back pain like this. He denies any history of epidural steroid injections last few weeks or months. He thinks his last injection was about a year ago. Patient also complains of pain radiating bilaterally down to mid thigh and he was unable to stand with knees giving away at the time of presentation. Patient's vital signs were stable except for mild tachycardia of 95. WBCs were 17.5 with neutrophilic predominance, ESR was 90 and CRP was 25. Patient was admitted and underwent blood cultures, MRI imaging of the spine. MRI lumbar spine showed multilevel disc disease [disc protrusion with foraminal narrowing impinging on the exiting right L1, right L2, bilateral L3 nerve roots]. Patient with blood cultures came back positive for staph aureus [medication negative suggestive of MSSA]. Patient has been on IV vancomycin and IV Zosyn since admission. The antibiotics were de-escalated to IV cefazolin 2 g every 8 hours on 06/27/18. Patient's white cell count trended down to 12.5 this morning. He has been afebrile during the admission. Last night he had acute back pain which needed IV pain medications to be administered to bring it down. At time of visit, patient confirmed the above history. He added that his pain is better now, rates it around 7 out of 10. Denies any nausea, vomiting, diarrhea. He has a pet dog [not sick]. Patient mentions that he had a cut on his hand few weeks ago which healed normally. He denies any skin boils or ulcers. He also reports that he had an annular ring placed around his mitral valve 3 years ago at time of mitral valve repair. Review of Systems All systems PM: reviewed and no additional remarkable complaints except as stated Past History Past family history: Not pertinent to current presentation Past social history: Lives in [place], [place] Medications and Allergies Home Medications Medication Instructions Recorded Confirmed Type Cyclobenzaprine [Flexeril] 10 mg PO HSP PRN 08/03/15 06/26/18 History HYDROcodone/APAP 10/325MG [[place] 1 tab PO Q3H PRN 08/03/15 06/26/18 History 10/325Mg] Atorvastatin [Lipitor] 20 mg PO DAILY 06/26/18 06/26/18 History DULoxetine HCL [Cymbalta] 30 mg PO DAILY 06/26/18 06/26/18 History DULoxetine HCL [Cymbalta] 60 mg PO DAILY 06/26/18 06/26/18 History Gabapentin 600 mg PO BID 06/26/18 06/26/18 History Lisinopril [Zestril] 5 mg PO DAILY 06/26/18 06/26/18 History Metoprolol Tartrate [Lopressor] 25 mg PO BID 06/26/18 06/26/18 History morphine SULFATE [Morphine Sulfate 15 mg PO Q8-12HP PRN 06/26/18 06/26/18 Histo ry ER] Allergies Allergy/AdvReac Type Severity Reaction Status Date / Time No Known Drug Allergies Allergy Verified 03/21/17 10:54 Physical Examination Vital signs: Temp Pulse Resp BP Pulse Ox 36.8 C 64 18 127/80 90 06/29/18 08:00 06/29/18 08:00 06/29/18 08:00 06/29/18 08:00 06/29/18 08:00 General appearance: no acute distress Eyes pulmonary: nonicteric ENT: other (No thrush, normal dental hygiene) Auscultation: bilateral: clear Cardiovascular: other (S1, S2 normal no murmurs auscultated) Gastrointestinal: normoactive bowel sounds Integumentary: normal, other (The cut in the right hand is healed. No splinter hemorrhages, Osler nodes or Janeway lesion) Extremities: no edema Musculoskeletal: other (Has tenderness on palpation of lumbar spine and right sa croiliac joint. No other joint swelling/redness/tenderness) Results - Laboratory Findings CBC and BMP: 06/29/18 04:10 06/29/18 04:10 Abnormal lab findings: Abnormal Labs 06/26/18 06/26/18 06/26/18 08:24 08:25 08:25 WBC 13.0 H RBC 4.17 L Hgb 12.9 L Hct 38.6 L POC Hct 39.0 L MPV 7.2 L Gran % 82.1 H Lymph % (Auto) 6.9 L Gran # 10.7 H Lymph # (Auto) 0.9 L [place] # (Auto) 1.4 H Band Neutrophils % Lymphocytes % Reactive Lymphocytes ESR 90 H Sodium Chloride BUN Creatinine Glucose POC Glucose 150 H Calcium Phosphorus C-Reactive Protein Globulin Urine Protein Urine RBC Urine Opiates Screen U Benzodiazepines Scrn 06/26/18 06/26/18 06/26/18 08:25 08:25 17:33 WBC RBC Hgb Hct POC Hct MPV Gran % Lymph % (Auto) Gran # Lymph # (Auto) [place] # (Auto) Band Neutrophils % 20 H Lymphocytes % 3 L Reactive Lymphocytes 3 H ESR Sodium 132 L Chloride 95 L BUN Creatinine Glucose 163 H POC Glucose Calcium Phosphorus 2.6 L C-Reactive Protein 25.9 H Globulin 4.0 H Urine Protein Urine RBC Urine Opiates Screen U Benzodiazepines Scrn 06/27/18 06/27/18 06/27/18 02:35 02:35 04:05 WBC 17.1 H RBC 3.75 L Hgb 11.6 L Hct 35.0 L POC Hct MPV Gran % 90.8 H Lymph % (Auto) 3.4 L Gran # 15.5 H Lymph # (Auto) 0.6 L [place] # (Auto) 1.0 H Band Neutrophils % Lymphocytes % Reactive Lymphocytes ESR Sodium Chloride BUN Creatinine Glucose POC Glucose Calcium Phosphorus C-Reactive Protein Globulin Urine Protein 30 A Urine RBC 2 H Urine Opiates Screen Suspect positive A U Benzodiazepines Scrn Suspect positive A 06/27/18 06/27/18 06/28/18 04:05 04:05 04:05 WBC 15.6 H RBC 3.52 L Hgb 11.0 L Hct 32.6 L POC Hct MPV Gran % 89.3 H Lymph % (Auto) 5.1 L Gran # 13.9 H Lymph # (Auto) 0.8 L [place] # (Auto) Band Neutrophils % 16 H Lymphocytes % 2 L Reactive Lymphocytes ESR Sodium Chloride BUN 25 H Creatinine Glucose 166 H POC Glucose Calcium Phosphorus 2.3 L C-Reactive Protein 33.2 H Globulin Urine Protein Urine RBC Urine Opiates Screen U Benzodiazepines Scrn 06/28/18 06/28/18 06/29/18 04:05 04:05 04:10 WBC 12.5 H RBC 3.69 L Hgb 11.4 L Hct 34.3 L POC Hct MPV 7.2 L Gran % 82.5 H Lymph % (Auto) 9.9 L Gran # 10.3 H Lymph # (Auto) 1.2 L [place] # (Auto) 1.0 H Band Neutrophils % Lymphocytes % Reactive Lymphocytes ESR Sodium Chloride BUN 31 H Creatinine Glucose 152 H POC Glucose Calcium Phosphorus C-Reactive Protein 21.3 H Globulin Urine Protein Urine RBC Urine Opiates Screen U Benzodiazepines Scrn 06/29/18 06/29/18 04:10 04:10 WBC RBC Hgb Hct POC Hct MPV Gran % Lymph % (Auto) Gran # Lymph # (Auto) [place] # (Auto) Band Neutrophils % Lymphocytes % Reactive Lymphocytes ESR Sodium Chloride BUN Creatinine 0.6 L Glucose 127 H POC Glucose Calcium 8.5 L Phosphorus C-Reactive Protein 9.4 H Globulin Urine Protein Urine RBC Urine Opiates Screen U Benzodiazepines Scrn Microbiology: Microbiology 06/28/18 04:05 Blood Blood Culture - Preliminary Gram positive cocci 06/28/18 04:10 Blood Blood Culture - Preliminary 06/26/18 17:33 Blood Blood Culture - Preliminary Staphylococcus aureus 06/26/18 17:22 Blood Blood Culture - Preliminary Gram positive cocci 06/26/18 19:22 Nose MRSA (PCR) - Final Assessment and Plan - Narrative A/P Narrative: Assessment: 1. MSSA bacteremia: Source is unclear but could have been seeded through the cut in the hand few we eks ago. Back pain is ominous but there is alternate explanation for symptoms based on the MRI findings: Multiple level disc protrusion with nerve impingement Given patient's history of mitral valve repair and patient having mitral annular ring, and positive blood cultures [06/26, 06/28]; OLGA should be considered -She meets 1 major and one minor of modified Calvo criteria [possible infective endocarditis] 2. Acute on chronic back pain: Secondary to prolapsed intervertebral disc with nerve impingement Repeat MRI next few weeks should be considered to rule out any infection Recommendations: Continue IV cefazolin 2 g every 8 hours Repeat blood cultures every other day until negative Consider OLGA to rule out any infective endocarditis. Spoke with patient that he may be transferred to another hospital to get it done If OLGA negative, patient would need at least 4 weeks of IV antibiotics. If OLGA positive, he will need a longer duration Consider repeating MRI thoracolumbar spine with contrast in next 2 to 3 weeks I would be available for any questions from the accepting provider at the hospital the patient is being transferred, and for follow-up after discharge. Jose Ayala MD Infectious disease
--- NOTE | 2018-06-29 12:55 | Transfer Summary ---
Transfer Discharge Sum: Prov Patient information: Note initiated : 06/29/18 at 12:52 pm Service Date, if different from initiated Date: [] Patient: Oliver Bettencourt 67 y/o M admitted on 06/28/18 for Back Pain . Chief Complaint: [] Date of admission: 06/28/18 10:56 Discharge Date: 06/29/18 Primary care physician: Alber Cartagena Consults: 06/26/18 Consult to Physician [CONS] Stat Comment: Consulting Provider: Zion Garcia Reason For Exam: Physician to Consult Consult to Physician [CONS] Stat Comment: Consulting Provider: Juan Francisco Teixeira Reason For Exam: Physician to Consult 06/26/18 19:14 Consult to Physician [CONS] Routine Comment: Consulting Provider: Jose Ayala Reason For Exam: Physician to Consult Transfer Discharge Sum: Med - Medications Active and Home Medications: Home Medications Cyclobenzaprine [Flexeril] 10 mg PO HSP PRN 08/03/15 [History Confirmed 06/26/18] HYDROcodone/APAP 10/325MG [[place] 10/325Mg] 1 tab PO Q3H PRN 08/03/15 [History Confirmed 06/26/18] Atorvastatin [Lipitor] 20 mg PO DAILY 06/26/18 [History Confirmed 06/26/18] DULoxetine HCL [Cymbalta] 30 mg PO DAILY 06/26/18 [History Confirmed 06/26/18] DULoxetine HCL [Cymbalta] 60 mg PO DAILY 06/26/18 [History Confirmed 06/26/18] Gabapentin 600 mg PO BID 06/26/18 [History Confirmed 06/26/18] Lisinopril [Zestril] 5 mg PO DAILY 06/26/18 [History Confirmed 06/26/18] Metoprolol Tartrate [Lopressor] 25 mg PO BID 06/26/18 [History Confirmed 06/26/18] morphine SULFATE [Morphine Sulfate ER] 15 mg PO Q8-12HP PRN 06/26/18 [History Confirmed 06/26/18] Active Medications Acetaminophen (Tylenol) 650 mg PO Q6HP PRN PRN Reason: PAIN/FEVER > 101 Hydrocodone Bitart/Acetaminophen ([place] 10/325mg) 1 tab PO Q3HP PRN PRN Reason: Pain Last Admin: 06/29/18 09:57 Dose: 1 tab Documented by: Albuterol/Ipratropium (Duoneb) 3 ml NEB Q4HP PRN PRN Reason: Shortness Of Breath Cefazolin Sodium (Ancef) 2 gm IV Q8H [facility] Diphenhydramine HCl (Benadryl) 25 mg PO HS ONE Stop: 06/29/18 21:01 Diphenhydramine HCl (Benadryl) 25 mg PO HSP PRN PRN Reason: Insomnia Docusate Sodium (Colace) 100 mg PO BID [facility] Last Admin: 06/29/18 08:18 Dose: 100 mg Documented by: Duloxetine HCl (Cymbalta) 90 mg PO DAILY [facility] Last Admin: 06/29/18 08:18 Dose: 90 mg Documented by: Gabapentin (Neurontin) 600 mg PO BID [facility] Last Admin: 06/29/18 08:17 Dose: 600 mg Documented by: Heparin Sodium (Porcine) (Heparin) 5,000 unit SQ Q12 [facility] Last Admin: 06/29/18 08:15 Dose: 5,000 unit Documented by: Hydromorphone HCl (Dilaudid) 0.5 - 2 mg IV Q2HP PRN PRN Reason: PAIN LEVEL > 6 Last Admin: 06/29/18 11:02 Dose: 2 mg Documented by: Potassium Chloride 40 meq/ (Dextrose) 520 mls @ 130 mls/hr IV UD PRN PRN Reason: Potassium < 3 Magnesium Sulfate (Magnesium Sulfate) 2 gm in 50 mls @ 50 mls/hr IV UD PRN PRN Reason: Magnesium </= 1.6 Lactulose (Cephulac) 10 gm PO DAILYP PRN PRN Reason: Constipation Lisinopril (Zestril) 5 mg PO DAILY [facility] Last Admin: 06/29/18 08:16 Dose: 5 mg Documented by: Melatonin (Melatonin 3mg Tablet) 3 mg PO HS [facility] Melatonin (Melatonin 3mg Tablet) 3 mg PO HSP PRN PRN Reason: Insomnia Methocarbamol (Robaxin) 1,000 mg IV Q8HP PRN PRN Reason: Muscle Spasm Last Admin: 06/29/18 03:54 Dose: 1,000 mg Documented by: Metoclopramide HCl (Reglan) 10 mg IV Q6HP PRN PRN Reason: Nausea And Vomiting Metoprolol Tartrate (Lopressor) 25 mg PO BID [facility] Last Admin: 06/29/18 08:19 Dose: 25 mg Documented by: Naloxone HCl (Narcan) 0.1 mg IV Q2MIN PRN PRN Reason: Opiate Reversal Ondansetron HCl (Zofran) 4 mg IV Q4HP PRN PRN Reason: Nausea And Vomiting Nicotine 2mg Gum 1 dose PO Q1HP PRN PRN Reason: Nicotine Cravings Stop: 07/07/18 09:35 Last Admin: 06/29/18 01:00 Dose: 1 dose Documented by: Polyethylene Glycol (Miralax) 17 gm PO DAILYP PRN PRN Reason: Constipation Potassium Chloride (Kdur) 40 meq PO UD PRN PRN Reason: Potssium is 3-3.5 Potassium Chloride (Kdur) 40 meq PO UD PRN PRN Reason: Potassium < 3 Senna (Senokot) 2 tab PO HSP PRN PRN Reason: Constipation Sodium Chloride (Saline Flush) 10 ml IV Q8 [facility] Last Admin: 06/29/18 05:53 Dose: 10 ml Documented by: Zolpidem Tartrate (Ambien) 5 mg PO HSP PRN PRN Reason: Insomnia Transfer Discharge Sum: Hosp Hospital course: Mr. Bettencourt is a 67 year old M Mr. Bettencourt is a 67 year old M With chronic low back pain with radiculopathy who presents with acute on chronic pain. History is obtained from as patient is currently sedated from her seizures and sedating medications. Per his he woke up fine Friday however Friday night he started having discomfort when he was home with his son started worsening of pain very agitated she said he was writhing in pain. He had an appointment to see Dr. Cartagena 4:00 on but could not wait and went into the ED. He was given a prescription for morphine. However pain was still uncontrolled on that. And then came back in early this morning. Pain is been so severe that he has had extremely difficult time and walking. could not recall any aggravating factors such as trauma or sudden twisting. He has been on [place]'s 10/325 8 times a day for years, plus Flexeril and gabapentin. There is no bowel or bladder incontinence. He has peripheral neuropathy with decreased sensations in his legs. He has radiculopathy to the bilateral legs/thigh. His reports no recent illnesses no fevers or chills. He had extensive work-up in the ED including lumbar x-rays chest x-ray lumbar MRI. The results were reviewed with Dr. Gilliland neurosurgeon who felt there is no acute pathology that required any potential surgical intervention. Case was discussed with Dr. Garcia who will manage the pain while inpatient. Case was also discussed with Dr. Ayala given the mildly elevated white blood cell count. CRP is elevated. Other than that and white blood cell count [id number] chemistries unremarkable. He is afebrile. He is also received in an epidural steroid injection by radiology without success. He has been sedated to the point where he required oxygenation. Because of intractable pain patient will be admitted for pain control with Dr. Feng following and Dr. Arredondo was consulted. Antibiotics have been started and blood cultures been started as well. ESR and procalcitonin are pending. MRI did not mention any discitis, however still on the differential. 06/27 Gram-positive cocci growing in both blood draws. No fever at this point. Patient alert and awake. Still have a lot of pain but managing much better than yesterday. Is currently sitting on side of bed with family present. Discussed the typical plan with this scenario as far as waiting for repeat cultures to become negative. 06/28 Back pain present but better controlled. No new complaints family at bedside. 06/29 Uncomfortable night last night. Had increased pain and cannot get comfortable. Poor sleep. No other new complaints. Awaiting repeat blood cultures. Repeat cultures a positive. Discussed case with infectious disease specialist, patient needs transesophageal echocardiogram which we are unable to do here. Talked with infectious disease specialist at [facility] and hospitalist Dr. Brewster who accepted the patient. Did discuss the possibility of repeating MRI with contrast as I saw the high suspicion this is spinal infection as opposed to heart however given his valve repair and repeat positive blood cultures imperative to rule out cardiac involvement. Portal eventually suspected to be break in skin. A: *Intractable LBP with b/l radiculopathy, acute on chronic: Improving -Imaging reviewed with Dr. Marily wong felt there is no concerns for a potential need for surgery *Likely discitis not evident on initial MRI -CRP/PCT/leukocytosis improving -portal of entry likely break in skin, had deep laceration on finger now healing over *MSSA Bacteremia: -No vegetations on echo *Hypoxia: from sedating meds for pain control and procedures -REsolved *Peripheral neuropathy: *HTN/HLD: *Fatty Liver: * P: -pain mgmnt per Dr. Garcia -on muscle relaxers/toradol/PRN Dilaudid for now -ID following -Cefazolin per ID -?repeat lumbar MRI with contrast -PICC when BC's neg -pending repeat (06/28) BC - -pt/ot -ppx: heparin - Time Spent with Patient Total time spent providing and/or coordinating transfer services: Transfer Discharge Sum: Exam - Constitutional Vitals: Vital Signs Temp Pulse Resp BP BP Pulse Ox 06/29/18 12:00 97.8 F 63 18 142/88 93 06/29/18 08:00 98.2 F 64 18 127/80 90 06/29/18 04:15 99.0 F 64 20 148/68 91 06/29/18 01:50 98.9 F 61 20 132/82 93 06/28/18 19:46 97.9 F 71 20 144/82 93 06/28/18 16:00 98.0 F 16 131/80 95 Intake and Output 06/28/18 06/29/18 06/29/18 21:59 05:59 13:59 Intake Total 370 850 175 Output Total 675 600 Balance 370 175 -425 Intake: IV 50 50 Ancef 2 gm In Dextrose 5% in 50 50 Water 50 ml @ 100 mls/hr IV Q8H [facility] Rx#:[id number] Oral 320 800 175 Output: Void Amount 675 600 Other: Meal Dinner Percent of Meal Consumed 100% Urine Color Bright Yellow Urine Odor Normal Stool Color Green Stool Consistency Formed # Voids 2 Weight 106.608 kg Transfer Discharge Sum: Data Procedures and tests throughout hospitalization: Pending Orders 06/26/18 Consult to Physician [CONS] Stat Consult to Physician [CONS] Stat 06/26/18 10:27 Bladder Scan .Routine 06/26/18 17:33 Blood Culture Stat 06/26/18 17:50 Resuscitation Status Routine 06/26/18 19:14 Ambulate-Progressive .PRN Elevate head of bed .ROUTINE IV Insertion/Management QSHIFT Notify Provider .routine Up to chair BID Vital Signs Q4H Consult to Physician [CONS] Routine Regular Diet RD to Adjust Diet/Supplements as Needed Routine Occupational Therapy Eval & Tx DAILY Physical Therapy Eval & Tx QD-BID Continuous pulse oximetry .ROUTINE Nebulizer management .Routine Pulse Oximetry .ROUTINE 06/28/18 04:10 Blood Culture Routine 06/28/18 10:56 Admit as Inpatient Routine 06/28/18 11:08 Acetaminophen [Tylenol] 650 mg PO Q6HP PRN HYDROcodone/APAP 10/325MG [[place] 10/325Mg] 1 tab PO Q3HP PRN HYDROmorphone [Dilaudid] 0.5 - 2 mg IV Q2HP PRN Ipratropium/Albuterol [Duoneb] 3 ml NEB Q4HP PRN Lactulose [Cephulac] 10 gm PO DAILYP PRN Magnesium Sulfate 2 gm in 50 ml IV UD Methocarbamol [Robaxin] 1,000 mg IV Q8HP PRN Metoclopramide [Reglan] 10 mg IV Q6HP PRN Naloxone HCl [Narcan] 0.1 mg IV Q2MIN PRN Ondansetron [Zofran] 4 mg IV Q4HP PRN Patients Own Medication 1 dose PO Q1HP PRN Polyethylene Glycol 3350 [Miralax] 17 gm PO DAILYP PRN Potassium Chloride 40 meq Dextrose 5% in Water 500 ml IV UD Potassium Chloride [Kdur] 40 meq PO UD PRN Potassium Chloride [Kdur] 40 meq PO UD PRN 06/28/18 14:00 0.9 % Sodium Chloride [Saline Flush] 10 ml IV Q8 06/28/18 21:00 Docusate Sodium [Colace] 100 mg PO BID Gabapentin [Neurontin] 600 mg PO BID Heparin 5,000 unit SQ Q12 Metoprolol Tartrate [Lopressor] 25 mg PO BID Sennosides [Senokot] 2 tab PO HSP PRN 06/29/18 09:00 DULoxetine [Cymbalta] 90 mg PO DAILY Lisinopril [Zestril] 5 mg PO DAILY 06/29/18 14:00 ceFAZolin [Ancef] 2 gm IV Q8H 06/29/18 21:00 Melatonin [Melatonin 3Mg Tablet] 3 mg PO HS Zolpidem [Ambien] 5 mg PO HSP PRN diphenhydrAMINE [Benadryl] 25 mg PO HS ONE 06/30/18 04:00 Basic Metabolic Panel Routine Blood Culture Routine Complete Blood Count Routine 06/30/18 21:00 Melatonin [Melatonin 3Mg Tablet] 3 mg PO HSP PRN diphenhydrAMINE [Benadryl] 25 mg PO HSP PRN Transfer Discharge Sum: A/P - Plan Disposition: Xfer [facility] Quality Measure Queries - VTE Deep Vein Thrombosis/Pulmonary Embolism Present on Admission: No
[2018-06-29] MEDS ORDERED: ceFAZolin 1 GM VIAL IV SCH (14:00)
[2018-06-29] MEDS ORDERED: ZOLPIDEM 5 MG TABLET PO PRN (21:00)
[2018-06-29] MEDS ORDERED: diphenhydrAMINE 25 MG CAPSULE PO ONE (21:00)
[2018-06-29] MEDS ORDERED: MELATONIN 3 MG TABLET PO SCH (21:00)
[2018-06-30] MEDS ORDERED: MELATONIN 3 MG TABLET PO PRN (21:00)
[2018-06-30] MEDS ORDERED: diphenhydrAMINE 25 MG CAPSULE PO PRN (21:00)
== END 2018-06-29 14:26 | disposition short-term general hospital (02) ==
LOC: ICU 02:26 → ED 02:26 → ICU 19:02 → MEDSUR 06-28 13:30
PROVIDERS: ADMIT Internal Medicine; ATTEND Internal Medicine